=== PATIENT | female | born 1940 | race Caucasian/White ===

== ENCOUNTER → 2017-07-30 | Outpatient (CLI) | payer OTHER ==
[~2017-07-30] MED LIST: 'CLONIDINE0.1 MG PO; ACETAMINOPHEN-H1 TA2 PO; ASPIRIN ADULT L81 M2 PO; ATIVAN1 MG PO; AUGMENTIN 875 M1 TAB PO; AUGMENTIN 875875 MG PO; CALCIUM CARBON500 M1 PO; CARAFATE1 GM PO; CIPRO500 MG PO; CIPROFLOXACIN500 M4 PO; CIPROFLOXACIN500 MG PO; CLARITIN10 MG PO; CLINDAMYCIN300 MG PO; COREG12.5 M1 PO; COREG12.5 MG PO; COREG25 MG PO; COZAAR100 MG PO; CYMBALTA30 MG PO; Carafate1 GM/10 ML PO; Clonidine HCl0.3 MG PO; DARVOCET N 1001 TAB PO; DAYPRO600 M1 PO; DOXYCYCLINE MO100 M1 PO; DUONEB 3 MG/3 ML3 M1 NEB; EC NAPROSYN375 MG PO; EMPIRIN325 MG; EVISTA60 MG PO; FEOSOL300 MG PO; FEOSOL325 MG PO; FERROUS SULFAT324 MG PO; FOSAMAX70 M1 PO; GLUCTESTSTRIP DEVI; HUMALOG100 U/ML SC; HYDR12.5C PO; HYDROCODONE BIT1 T11 PO; HYDROCODONE-APA1 TA1 PO; KEFLEX500 MG PO; KENALOG0.1% TP; LANTUS100 U/ML SC; LASIX20 MG PO; LASIX40 MG PO; LIDODERM 5% PATC1 EA T; LIPITOR10 MG PO; LIPITOR40 MG PO; LISINOPRIL10 MG PO; LODINE400 MG; LODINE400 MG PO; LORAZEPAM0.5 MG PO; LORAZEPAM1 MG PO; Lopressor25 MG PO; MEDROL DOSEPAK4 MG PO; MELOXICAM15 MG PO; MOBIC7.5 MG PO; MULTI VITAMINS1 TAB PO; MULTIVITAMIN CH1 CT1 PO; NAPROSYN250 MG PO; NEXIUM40 MG PO; NORCO 325 MG-51 TAB PO; NORVASC10 MG PO; NOVOLOG10 ML IV; OMEPRAZOLE40 MG PO; ONDANSETRON H2 MG/ML IV; OSCAL,OYSTER S500 MG PO; OYSTER SHELL C500 M3 PO; OYSTER SHELL CA1 TA3 PO; PERCOCET 325 MG1 TA7 PO; PHENERGAN25 M1 PO; PHENERGAN25 M3 PO; PLAVIX75 M1 PO; PLAVIX75 MG PO; PREDNISONE5 MG PO; PRILOSEC20 MG PO; PROTONIX40 MG PO; RALOXIFENE HCL60 MG PO; REQUIP1 MG PO; REQUIP2 M2 PO; ROBAXIN500 MG PO; THERAGRAN1 TA1 PO; TRAMADOL HCL50 MG PO; TUMS 500500 MG PO; TYLENOL EXTRA500 M2 PO; ULTRAM50 MG PO; VICO10300 PO; VICODIN 5/500 505 MG PO; VICODIN 500 MG-1 TAB PO; VITAMIN D1000 IU PO; VITAMIN D50000 I3 PO; XANAX0.5 MG PO; ZANAFLEX4 M1 PO; ZANAFLEX4 MG PO; ZANTAC 150150 MG PO; ZANTAC150 MG PO; ZESTRIL,PRINIVI10 MG PO; ZESTRIL30 M3 PO; ZESTRIL5 MG; ZOFRAN ODT4 MG SL; ZOFRAN4 MG PO; ZOLOFT25 MG PO; ZOLOFT50 MG PO; Zestril,Prinivi40 MG PO; [UNRECOGNIZED DRUG - OTHER]; [UNRECOGNIZED DRUG - OTHER] PO; [UNRECOGNIZED DRUG - OTHER] SC
== END | disposition home or self-care (01) ==
LOC: ORTHO 01:28
DX: M25.551 Pain in right hip (principal); Z96.641 Presence of right artificial hip joint

== ENCOUNTER 2017-12-07 16:08 | Emergency (ER) | payer OTHER ==
[~2017-12-07] VITALS: Ht 170.1 cm; Wt 68.0 kg
[2017-12-07 16:29] LABS: BILIRUBIN 1+ (NEGATIVE); BLOOD TRACE-LYSED (NEGATIVE); CLARITY SL CLOUDY (CLEAR); COLOR YELLOW (YELLOW); GLUCOSE NEGATIVE (NEGATIVE); KETONE TRACE (NEGATIVE); LEUKO ESTERASE NEGATIVE (NEGATIVE); NITRITE POSITIVE (NEGATIVE); SPECIFIC GRAVITY 1.025 (1.005-1.030)
[2017-12-07 16:44] LABS: BACTERIA 1+; RBC 0-2 rbc/hpf (0-2)
[2017-12-07 16:47] LABS: BASO % 0.3 % (0.0-1.0); EOS # 0.3 10*3/uL (0.0-0.4); EOS % 3.1 % (1.0-4.0); HEMATOCRIT 34.4 % (37.0-47.0); HEMOGLOBIN 11.4 g/dl (12.0-16.0); LYMPH # 0.9 10*3/uL (1.3-4.4); LYMPH % 8.3 % (27.0-41.0); MEAN CELL VOLUME 85.8 fl (81.0-99.0); MEAN CORPUSCULAR HGB 28.4 pg (27.0-31.0); MEAN CORPUSCULAR HGB CONC 33.1 g/dl (33.0-37.0); MEAN PLATELET VOLUME 10.4 fl (9.6-12.3); MONO # 1.1 10*3/uL (0.1-1.0); NEUT # 8.7 10*3/uL (2.3-7.9); NEUT % 77.8 % (47.0-73.0); PLATELET COUNT AUTOMATED 266 10*3/uL (130-400); RED BLOOD COUNT 4.01 10*6/uL (4.10-5.10); RED CELL DISTRI WIDTH 13.3 % (0-14.5); WHITE BLOOD COUNT 11.1 10*3/uL (4.8-10.8)
[2017-12-07 16:49] LABS: URINE AMPHETAMINES < 1000 (1000ng/ml); URINE BARBITURATES < 200 (200ng/ml); URINE BENZODIAZEPINES < 200 (200ng/ml); URINE CANNABINOIDS (THC) < 50 (50ng/ml); URINE COCAINE < 300 (300ng/ml); URINE METHADONE < 300 (300ng/ml); URINE OPIATES > 300 (300ng/ml)
[2017-12-07 16:50] LABS: URINE PHENCYCLIDINE < 25 (25ng/ml)
[2017-12-07 17:03] LABS: ALBUMIN 3.4 gm/dl (3.1-4.5); CREATININE 1.51 mg/dL (0.55-1.02); POTASSIUM 3.9 mmol/L (3.5-5.1); TOTAL PROTEIN 7.3 gm/dL (6.4-8.2)
[2017-12-07] MEDS ORDERED: SEPTDS PO (18:14)
[2017-12-07 19:26] VITALS: BP 124/90
== END 2017-12-07 18:45 | disposition home or self-care (01) ==
LOC: ED 16:08
PROVIDERS: Emergency Medicine
DX: R41.82 Altered mental status, unspecified (principal); N39.0 Urinary tract infection, site not specified; I25.10 Atherosclerotic heart disease of native coronary artery without angina pectoris; I13.0 Hypertensive heart and chronic kidney disease with heart failure and stage 1 through stage 4 chronic kidney disease, or unspecified chronic kidney disease; E11.22 Type 2 diabetes mellitus with diabetic chronic kidney disease; N18.3 Chronic kidney disease, stage 3 (moderate); I50.9 Heart failure, unspecified; E78.00 Pure hypercholesterolemia, unspecified; M19.90 Unspecified osteoarthritis, unspecified site; I25.2 Old myocardial infarction; Z86.73 Personal history of transient ischemic attack (TIA), and cerebral infarction without residual deficits; Z90.49 Acquired absence of other specified parts of digestive tract; Z95.1 Presence of aortocoronary bypass graft; Z98.890 Other specified postprocedural states; Z79.4 Long term (current) use of insulin; Z79.899 Other long term (current) drug therapy; Z91.041 Radiographic dye allergy status; Z88.8 Allergy status to other drugs, medicaments and biological substances; Z79.82 Long term (current) use of aspirin

== ENCOUNTER 2017-12-12 14:21 | Emergency (ER) | payer OTHER ==
[~2017-12-12] VITALS: Ht 154.9 cm; Wt 63.5 kg
[~2017-12-12 14:21] MED LIST changes: +SEPTDS PO
[2017-12-12 15:08] LABS: BASO # 0.1 10*3/uL (0.0-0.1); BASO % 0.8 % (0.0-1.0); EOS # 0.3 10*3/uL (0.0-0.4); EOS % 3.3 % (1.0-4.0); HEMATOCRIT 34.9 % (37.0-47.0); HEMOGLOBIN 11.4 g/dl (12.0-16.0); LYMPH # 1.9 10*3/uL (1.3-4.4); LYMPH % 19.6 % (27.0-41.0); MEAN CELL VOLUME 85.1 fl (81.0-99.0); MEAN CORPUSCULAR HGB 27.8 pg (27.0-31.0); MEAN CORPUSCULAR HGB CONC 32.7 g/dl (33.0-37.0); MONO # 0.7 10*3/uL (0.1-1.0); MONO % 7.4 % (3.0-9.0); NEUT # 6.5 10*3/uL (2.3-7.9); NEUT % 66.8 % (47.0-73.0); PLATELET COUNT AUTOMATED 362 10*3/uL (130-400); RED CELL DISTRI WIDTH 13.3 % (0-14.5); WHITE BLOOD COUNT 9.7 10*3/uL (4.8-10.8)
[2017-12-12 15:29] LABS: BILIRUBIN NEGATIVE (NEGATIVE); BLOOD NEGATIVE (NEGATIVE); CLARITY SL CLOUDY (CLEAR); COLOR YELLOW (YELLOW); GLUCOSE 3+ (NEGATIVE); KETONE NEGATIVE (NEGATIVE); LEUKO ESTERASE TRACE (NEGATIVE); NITRITE POSITIVE (NEGATIVE); PH 6.5 (5.0-9.0)
[2017-12-12 15:37] LABS: ALBUMIN 3.3 gm/dl (3.1-4.5); CREATININE 1.55 mg/dL (0.55-1.02); POTASSIUM 4.3 mmol/L (3.5-5.1); TOTAL PROTEIN 7.1 gm/dL (6.4-8.2)
[2017-12-12 15:39] LABS: BACTERIA 2+; EPITHELIAL CELLS 0-2; RBC 0-2 rbc/hpf (0-2); WBC TNTC wbc/hpf (0-5)
[2017-12-12] MEDS ORDERED: AMINOPHYLLIN200 MG PO (16:27)
[2017-12-12] MEDS ORDERED: SEPTDS PO (16:29)
[2017-12-12 17:00] VITALS: BP 123/82
== END 2017-12-12 16:50 ==
LOC: ED 14:21
PROVIDERS: Physician Assistant
DX: N39.0 Urinary tract infection, site not specified (principal); R41.82 Altered mental status, unspecified; Z90.49 Acquired absence of other specified parts of digestive tract; Z88.8 Allergy status to other drugs, medicaments and biological substances

== ENCOUNTER 2017-12-25 23:13 | Inpatient (IN) | payer OTHER ==
[~2017-12-25] VITALS: Ht 149.9 cm; Wt 61.0 kg
[~2017-12-25 23:13] MED LIST changes: +AMINOPHYLLIN200 MG PO
[2017-12-25 23:21] VITALS: BP 121/43
[2017-12-25 23:25] LABS: BILIRUBIN NEGATIVE (NEGATIVE); BLOOD NEGATIVE (NEGATIVE); CLARITY SL CLOUDY (CLEAR); COLOR YELLOW (YELLOW); GLUCOSE NEGATIVE (NEGATIVE); KETONE TRACE (NEGATIVE); LEUKO ESTERASE NEGATIVE (NEGATIVE); NITRITE NEGATIVE (NEGATIVE); PH 5.5 (5.0-9.0); SPECIFIC GRAVITY 1.015 (1.005-1.030); UROBILINOGEN 0.2 E.U./dl (0.2-1.0)
[2017-12-25 23:34] LABS: BACTERIA TRACE; RBC 0-2 rbc/hpf (0-2)
[2017-12-26] LABS: BASO # 0.1 10*3/uL (0.0-0.1); BASO % 0.6 % (0.0-1.0); EOS # 0.3 10*3/uL (0.0-0.4); EOS % 3.6 % (1.0-4.0); HEMATOCRIT 36.4 % (37.0-47.0); HEMOGLOBIN 11.5 g/dl (12.0-16.0); LYMPH # 2.4 10*3/uL (1.3-4.4); LYMPH % 28.6 % (27.0-41.0); MEAN CELL VOLUME 87.7 fl (81.0-99.0); MEAN CORPUSCULAR HGB 27.7 pg (27.0-31.0); MEAN CORPUSCULAR HGB CONC 31.6 g/dl (33.0-37.0); MEAN PLATELET VOLUME 10.2 fl (9.6-12.3); MONO # 0.7 10*3/uL (0.1-1.0); MONO % 8.5 % (3.0-9.0); NEUT # 4.9 10*3/uL (2.3-7.9); NEUT % 58.5 % (47.0-73.0); PLATELET COUNT AUTOMATED 301 10*3/uL (130-400); RED BLOOD COUNT 4.15 10*6/uL (4.10-5.10); RED CELL DISTRI WIDTH 14.1 % (0-14.5); WHITE BLOOD COUNT 8.4 10*3/uL (4.8-10.8)
[2017-12-26 00:21] VITALS: BP 132/56
[2017-12-26 00:22] LABS: ALBUMIN 3.7 gm/dl (3.1-4.5); CREATININE 2.98 mg/dL (0.55-1.02)
[2017-12-26 00:25] LABS: POTASSIUM 6.7 mmol/L (3.5-5.1); TROPONIN I 0.059 ng/ml (<0.045)
[2017-12-26 02:10] VITALS: BP 161/50
[2017-12-26] MEDS ORDERED: CYMBALTA60 MG PO (03:51)
[2017-12-26] MEDS ORDERED: DEPAKOTE ER250 MG PO (03:52)
[2017-12-26] MEDS ORDERED: NOVOLOG100 UNIT/1 SQ (03:54)
[2017-12-26] MEDS ORDERED: TUMS200 MG PO (04:02)
[2017-12-26] MEDS ORDERED: VITAMIN D34000 UNIT PO (04:03)
[2017-12-26] MEDS ORDERED: COREG25 MG PO (04:04)
[2017-12-26] MEDS ORDERED: TYLENOL325 M1 PO (04:06)
[2017-12-26] MEDS ORDERED: BASAGLAR KWIK PEN SC (04:17)
[2017-12-26] MEDS ORDERED: PROTONIX IV40 MG PO (04:20)
[2017-12-26 05:50] LABS: CREATININE 2.47 mg/dL (0.55-1.02)
[2017-12-26 05:56] LABS: THYROID STIM HORMONE (HS) 1.62 uIU/ml (0.358-4.75)
[2017-12-26 06:12] LABS: BASO % 0.5 % (0.0-1.0); EOS # 0.2 10*3/uL (0.0-0.4); EOS % 3.7 % (1.0-4.0); HEMOGLOBIN 10.3 g/dl (12.0-16.0); LYMPH # 1.6 10*3/uL (1.3-4.4); LYMPH % 27.9 % (27.0-41.0); MEAN CELL VOLUME 88.7 fl (81.0-99.0); MEAN CORPUSCULAR HGB 27.7 pg (27.0-31.0); MEAN CORPUSCULAR HGB CONC 31.2 g/dl (33.0-37.0); MEAN PLATELET VOLUME 10.6 fl (9.6-12.3); MONO # 0.6 10*3/uL (0.1-1.0); MONO % 10.4 % (3.0-9.0); NEUT # 3.4 10*3/uL (2.3-7.9); NEUT % 57.2 % (47.0-73.0); PLATELET COUNT AUTOMATED 253 10*3/uL (130-400); RED BLOOD COUNT 3.72 10*6/uL (4.10-5.10); RED CELL DISTRI WIDTH 14.1 % (0-14.5); WHITE BLOOD COUNT 5.9 10*3/uL (4.8-10.8)
[2017-12-26 06:21] LABS: ACT PARTIAL THROMBO TIME 24.3 SECONDS (20.8-31.5)
[2017-12-26 07:18] LABS: VITAMIN D, 25-HYDROXY 76.4 ng/mL (30-100)
[2017-12-26 08:00] VITALS: BP 154/57
[2017-12-26 12:00] VITALS: BP 156/57
[2017-12-26 16:00] VITALS: BP 156/51
[2017-12-26 20:00] VITALS: BP 149/39
[2017-12-27] VITALS: BP 146/58
[2017-12-27 06:00] LABS: CREATININE 1.5 mg/dL (0.55-1.02)
[2017-12-27 06:10] LABS: BASO % 0.5 % (0.0-1.0); EOS # 0.3 10*3/uL (0.0-0.4); EOS % 5.5 % (1.0-4.0); HEMATOCRIT 32.1 % (37.0-47.0); LYMPH % 34.4 % (27.0-41.0); MEAN CELL VOLUME 89.4 fl (81.0-99.0); MEAN CORPUSCULAR HGB 27.9 pg (27.0-31.0); MEAN CORPUSCULAR HGB CONC 31.2 g/dl (33.0-37.0); MEAN PLATELET VOLUME 10.6 fl (9.6-12.3); MONO # 0.7 10*3/uL (0.1-1.0); MONO % 12.1 % (3.0-9.0); NEUT # 2.7 10*3/uL (2.3-7.9); NEUT % 47.2 % (47.0-73.0); PLATELET COUNT AUTOMATED 212 10*3/uL (130-400); RED BLOOD COUNT 3.59 10*6/uL (4.10-5.10); RED CELL DISTRI WIDTH 13.9 % (0-14.5); WHITE BLOOD COUNT 5.8 10*3/uL (4.8-10.8)
[2017-12-27 06:11] LABS: POTASSIUM 4.8 mmol/L (3.5-5.1)
[2017-12-27 08:00] VITALS: BP 130/40
[2017-12-27 12:00] VITALS: BP 139/57
[2017-12-27 16:00] VITALS: BP 143/59
[2017-12-27 20:00] VITALS: BP 157/71
[2017-12-28 00:10] VITALS: BP 157/82
[2017-12-28 07:30] LABS: CREATININE 1.29 mg/dL (0.55-1.02); PHOSPHOROUS 2.1 mg/dL (2.5-4.9); POTASSIUM 4.3 mmol/L (3.5-5.1)
[2017-12-28 08:42] VITALS: BP 156/82
[2017-12-28] MEDS ORDERED: HYDROCODONE-AC1 EAC1 PO (12:09)
== END 2017-12-28 16:05 | disposition other institution (70) | DRG 682 ==
LOC: ED 23:13 → 5E 12-26 01:16 → EDHOLD 12-26 01:16 → 5E 12-26 01:28
PROVIDERS: Internal Medicine; Nurse Practitioner Family
DX: N17.0 Acute kidney failure with tubular necrosis (principal); G93.41 Metabolic encephalopathy; E11.22 Type 2 diabetes mellitus with diabetic chronic kidney disease; E11.65 Type 2 diabetes mellitus with hyperglycemia; I50.32 Chronic diastolic (congestive) heart failure; I13.0 Hypertensive heart and chronic kidney disease with heart failure and stage 1 through stage 4 chronic kidney disease, or unspecified chronic kidney disease; E87.1 Hypo-osmolality and hyponatremia; F33.9 Major depressive disorder, recurrent, unspecified; I25.810 Atherosclerosis of coronary artery bypass graft(s) without angina pectoris; Z83.3 Family history of diabetes mellitus; Z66 Do not resuscitate; E87.5 Hyperkalemia; D50.9 Iron deficiency anemia, unspecified; Z51.5 Encounter for palliative care; K57.30 Diverticulosis of large intestine without perforation or abscess without bleeding; N18.3 Chronic kidney disease, stage 3 (moderate); G89.29 Other chronic pain; M19.90 Unspecified osteoarthritis, unspecified site; E78.00 Pure hypercholesterolemia, unspecified; K44.9 Diaphragmatic hernia without obstruction or gangrene; M54.41 Lumbago with sciatica, right side; E53.8 Deficiency of other specified B group vitamins; Z88.8 Allergy status to other drugs, medicaments and biological substances; Z91.041 Radiographic dye allergy status; Z79.899 Other long term (current) drug therapy; Z79.82 Long term (current) use of aspirin; Z79.4 Long term (current) use of insulin; Z98.42 Cataract extraction status, left eye; Z98.41 Cataract extraction status, right eye; I25.2 Old myocardial infarction; Z86.73 Personal history of transient ischemic attack (TIA), and cerebral infarction without residual deficits; Z90.49 Acquired absence of other specified parts of digestive tract; Z95.1 Presence of aortocoronary bypass graft; Z80.9 Family history of malignant neoplasm, unspecified; Z82.49 Family history of ischemic heart disease and other diseases of the circulatory system

== ENCOUNTER 2018-01-04 17:27 | Inpatient (IN) | payer OTHER ==
[~2018-01-04] VITALS: Ht 149.9 cm; Wt 57.0 kg
[~2018-01-04 17:27] MED LIST changes: +BASAGLAR KWIK PEN SC; +CYMBALTA60 MG PO; +DEPAKOTE ER250 MG PO; +HYDROCODONE-AC1 EAC1 PO; +NOVOLOG10 ML SQ; +NOVOLOG100 UNIT/1 SQ; +PROTONIX IV40 MG PO; +TUMS200 MG PO; +TYLENOL325 M1 PO; +VITAMIN D34000 UNIT PO
[2018-01-04 17:30] VITALS: BP 124/78
[2018-01-04 17:46] LABS: BILIRUBIN NEGATIVE (NEGATIVE); BLOOD TRACE-INTACT (NEGATIVE); CLARITY CLEAR (CLEAR); COLOR YELLOW (YELLOW); GLUCOSE NEGATIVE (NEGATIVE); KETONE NEGATIVE (NEGATIVE); LEUKO ESTERASE NEGATIVE (NEGATIVE); NITRITE NEGATIVE (NEGATIVE); UROBILINOGEN 0.2 E.U./dl (0.2-1.0)
[2018-01-04] MEDS ORDERED: LANTUS SOL100 UNIT/1 SQ (17:50)
[2018-01-04] MEDS ORDERED: MACROBID100 M1 PO (17:52)
[2018-01-04] MEDS ORDERED: BIOFREEZE118 ML T (17:52)
[2018-01-04] MEDS ORDERED: LOSARTAN POTAS100 M1 PO (17:52)
[2018-01-04] MEDS ORDERED: TYLENOL325 M2 PO (17:54)
[2018-01-04] MEDS ORDERED: NOVOLOG100 UNIT/1 SQ (17:55)
[2018-01-04 17:59] LABS: BACTERIA TRACE
[2018-01-04 18:23] LABS: BASO % 0.3 % (0.0-1.0); EOS # 0.1 10*3/uL (0.0-0.4); EOS % 0.8 % (1.0-4.0); HEMATOCRIT 37.4 % (37.0-47.0); HEMOGLOBIN 12.1 g/dl (12.0-16.0); LYMPH # 0.6 10*3/uL (1.3-4.4); LYMPH % 3.6 % (27.0-41.0); MEAN CELL VOLUME 84.8 fl (81.0-99.0); MEAN CORPUSCULAR HGB 27.4 pg (27.0-31.0); MEAN CORPUSCULAR HGB CONC 32.4 g/dl (33.0-37.0); MEAN PLATELET VOLUME 10.5 fl (9.6-12.3); MONO # 1.2 10*3/uL (0.1-1.0); MONO % 7.6 % (3.0-9.0); NEUT # 13.8 10*3/uL (2.3-7.9); NEUT % 86.5 % (47.0-73.0); PLATELET COUNT AUTOMATED 232 10*3/uL (130-400); RED BLOOD COUNT 4.41 10*6/uL (4.10-5.10)
[2018-01-04 18:27] VITALS: BP 140/75
[2018-01-04 18:41] LABS: ALBUMIN 3.7 gm/dl (3.1-4.5); CREATININE 1.26 mg/dL (0.55-1.02); POTASSIUM 4.2 mmol/L (3.5-5.1); TOTAL PROTEIN 7.6 gm/dL (6.4-8.2)
[2018-01-04 18:45] LABS: TROPONIN I 0.11 ng/ml (<0.045)
[2018-01-04 19:40] VITALS: BP 143/85
[2018-01-04 21:15] VITALS: BP 143/85
[2018-01-05] VITALS: BP 137/53
== END 2018-01-05 04:27 | disposition short-term general hospital (02) | DRG 637 ==
LOC: ED 17:27 → EDHOLD 20:32 → 4E 20:55
PROVIDERS: Emergency Medicine; Nurse Practitioner Family
DX: E11.65 Type 2 diabetes mellitus with hyperglycemia (principal); G93.41 Metabolic encephalopathy; E87.2 Acidosis; I13.0 Hypertensive heart and chronic kidney disease with heart failure and stage 1 through stage 4 chronic kidney disease, or unspecified chronic kidney disease; R65.10 Systemic inflammatory response syndrome (SIRS) of non-infectious origin without acute organ dysfunction; E11.22 Type 2 diabetes mellitus with diabetic chronic kidney disease; I50.32 Chronic diastolic (congestive) heart failure; F33.9 Major depressive disorder, recurrent, unspecified; I25.810 Atherosclerosis of coronary artery bypass graft(s) without angina pectoris; N18.3 Chronic kidney disease, stage 3 (moderate); H26.9 Unspecified cataract; K31.89 Other diseases of stomach and duodenum; K44.9 Diaphragmatic hernia without obstruction or gangrene; M54.41 Lumbago with sciatica, right side; G89.29 Other chronic pain; E78.00 Pure hypercholesterolemia, unspecified; E53.8 Deficiency of other specified B group vitamins; E55.9 Vitamin D deficiency, unspecified; K43.9 Ventral hernia without obstruction or gangrene; Z66 Do not resuscitate; Z51.5 Encounter for palliative care; M19.90 Unspecified osteoarthritis, unspecified site; R80.9 Proteinuria, unspecified; M81.0 Age-related osteoporosis without current pathological fracture; G25.81 Restless legs syndrome; K57.30 Diverticulosis of large intestine without perforation or abscess without bleeding; Z86.73 Personal history of transient ischemic attack (TIA), and cerebral infarction without residual deficits; Z90.89 Acquired absence of other organs; Z90.49 Acquired absence of other specified parts of digestive tract; Z95.1 Presence of aortocoronary bypass graft; Z83.3 Family history of diabetes mellitus; Z82.49 Family history of ischemic heart disease and other diseases of the circulatory system; Z80.9 Family history of malignant neoplasm, unspecified; Z88.8 Allergy status to other drugs, medicaments and biological substances; I25.2 Old myocardial infarction; Z91.041 Radiographic dye allergy status; Z79.82 Long term (current) use of aspirin; Z79.899 Other long term (current) drug therapy; Z79.4 Long term (current) use of insulin; Z87.440 Personal history of urinary (tract) infections

== ENCOUNTER 2018-01-08 19:14 | Emergency (ER) | payer OTHER ==
[~2018-01-08] VITALS: Wt 68.0 kg
[~2018-01-08 19:14] MED LIST changes: +BIOFREEZE118 ML T; +LANTUS SOL100 UNIT/1 SQ; +LOSARTAN POTAS100 M1 PO; +MACROBID100 M1 PO; +TYLENOL325 M2 PO
[2018-01-08 19:37] LABS: BILIRUBIN NEGATIVE (NEGATIVE); BLOOD NEGATIVE (NEGATIVE); CLARITY CLEAR (CLEAR); COLOR YELLOW (YELLOW); GLUCOSE 2+ (NEGATIVE); KETONE TRACE (NEGATIVE); LEUKO ESTERASE NEGATIVE (NEGATIVE); NITRITE NEGATIVE (NEGATIVE); UROBILINOGEN 0.2 E.U./dl (0.2-1.0)
[2018-01-08 19:45] LABS: BACTERIA 2+; EPITHELIAL CELLS 0-2; RBC 0-2 rbc/hpf (0-2)
[2018-01-08 19:46] LABS: URINE AMPHETAMINES < 1000 (1000ng/ml); URINE BARBITURATES < 200 (200ng/ml); URINE BENZODIAZEPINES < 200 (200ng/ml); URINE CANNABINOIDS (THC) < 50 (50ng/ml); URINE COCAINE < 300 (300ng/ml); URINE METHADONE < 300 (300ng/ml); URINE OPIATES > 300 (300ng/ml)
[2018-01-08 19:47] LABS: URINE PHENCYCLIDINE < 25 (25ng/ml)
[2018-01-08] MEDS ORDERED: BIOFREEZE118 ML T (20:02)
[2018-01-08 20:03] LABS: HEMATOCRIT 37.3 % (37.0-47.0); HEMOGLOBIN 11.8 g/dl (12.0-16.0); MEAN CELL VOLUME 85.9 fl (81.0-99.0); MEAN CORPUSCULAR HGB 27.2 pg (27.0-31.0); MEAN CORPUSCULAR HGB CONC 31.6 g/dl (33.0-37.0); MEAN PLATELET VOLUME 9.8 fl (9.6-12.3); NUCLEATED RED BLOOD CELL 0.1 % (0.0-0.0); PLATELET COUNT AUTOMATED 309 10*3/uL (130-400); RED BLOOD COUNT 4.34 10*6/uL (4.10-5.10); WHITE BLOOD COUNT 14.9 10*3/uL (4.8-10.8)
[2018-01-08] MEDS ORDERED: COZAAR100 MG PO (20:04)
[2018-01-08] MEDS ORDERED: MACROBID100 M1 PO (20:04)
[2018-01-08] MEDS ORDERED: NORCO 5-325 TA1 EACH PO (20:05)
[2018-01-08] MEDS ORDERED: NOVOLOG10 ML SQ (20:07)
[2018-01-08] MEDS ORDERED: TUMS200 MG PO (20:08)
[2018-01-08 20:20] LABS: CREATININE 1.28 mg/dL (0.55-1.02); POTASSIUM 3.4 mmol/L (3.5-5.1); TOTAL PROTEIN 7.4 gm/dL (6.4-8.2)
[2018-01-08 20:29] LABS: TROPONIN I 0.114 ng/ml (<0.045)
[2018-01-08 20:41] VITALS: BP 169/78
[2018-01-08 20:42] LABS: TOTAL CELLS COUNTED 100 #CELLS
[2018-01-08 20:43] LABS: PLATELET SUFFICIENCY NORMAL (NORMAL)
== END 2018-01-08 21:42 ==
LOC: ED 19:14
PROVIDERS: Emergency Medicine Emergency Medical Services
DX: N39.0 Urinary tract infection, site not specified (principal); I13.0 Hypertensive heart and chronic kidney disease with heart failure and stage 1 through stage 4 chronic kidney disease, or unspecified chronic kidney disease; E11.22 Type 2 diabetes mellitus with diabetic chronic kidney disease; N18.3 Chronic kidney disease, stage 3 (moderate); I50.9 Heart failure, unspecified; E78.00 Pure hypercholesterolemia, unspecified; M19.90 Unspecified osteoarthritis, unspecified site; G89.29 Other chronic pain; I25.10 Atherosclerotic heart disease of native coronary artery without angina pectoris; Z86.73 Personal history of transient ischemic attack (TIA), and cerebral infarction without residual deficits; Z90.49 Acquired absence of other specified parts of digestive tract; Z95.1 Presence of aortocoronary bypass graft; Z98.890 Other specified postprocedural states; Z79.4 Long term (current) use of insulin; Z79.899 Other long term (current) drug therapy; Z91.041 Radiographic dye allergy status; Z88.8 Allergy status to other drugs, medicaments and biological substances; Z79.82 Long term (current) use of aspirin

== ENCOUNTER 2018-02-09 13:43 | Inpatient (IN) | payer OTHER ==
[~2018-02-09] VITALS: Ht 149.8 cm; Wt 59.9 kg
--- NOTE | ~2018-02-09 | PR ---
[place], [place] PROGRESS NOTE NAME: [facility]ANG [facility] [id number] UNIT #: [id number] ROOM: 316 DOCTOR: MATT FERRO DO BIRTHDATE: [birth year] DOS: 02/18/2018 CHIEF COMPLAINT: "I had blurry vision." SUMMARY OF VISIT: The patient was interviewed in her room. She ____ lot better ____. Per staff, she got 1 [place] last night at about 6:00 p.m. She does complain of blurriness in her vision, difficulty participating in group ____. MENTAL STATUS EXAMINATION: She is alert and oriented with some times gaps. Mood tends to be trending towards euthymia with appropriate affect. She has not displayed any signs or symptoms of courtney, hypomania, delusions or psychosis. Short term memory is relatively intact. PLAN: We will continue her current psychotropic regimen at this time, monitoring her pain and continue to engage her in individual and group activities with the plan to return her to the least restrictive environment when psychiatrically stable. MATT FERRO DO GLADYS BATEMAN MD CM:PNTRANS [id number] MATT FERRO DO 02/19/18 0324 interface
--- NOTE | ~2018-02-09 | PR ---
[place], [place] PROGRESS NOTE [id number] UN[facility] #: [id number] ROOM: 316 DOCTOR: MATT FERRO DO BIRTHDATE: [birth year] DOS: 02/17/2018 CHIEF COMPLAINT: "Pain is 10/10." SUMMARY OF VISIT: The patient was interviewed in her room. She states that she did not sleep very well due to increased pain, pain at 10/10. Per report, she has poor p.o. intake. She is not caring for self, reported an incident where she needed to go to the bathroom and needed assistance walking to the bathroom. The assistance ____. She states that the medication is not working as well as it did the day before. MENTAL STATUS EXAMINATION: She is alert and oriented, some time gaps. Mood is trending towards euthymia. Appropriate affect. She does not play display any symptoms or signs of courtney, hypomania or psychosis. Short term memory is relatively intact. PLAN: We will increase her Elavil to 50 mg t.i.d. to monitor for potential benefit for pain. Continue to engage her in group and individual activities with the plan to return her to the least restrictive environment when psychiatrically stable. MATT FERRO DO GLADYS BATEMAN MD CM:PNTRANS [id number] MATT FERRO DO 02/19/18 0322 interface
--- NOTE | ~2018-02-09 | DS ---
[place], [place] DISCHARGE SUMMARY NAME: CHANCE KANG [facility] #: [id number] UNIT #: [id number] ROOM: 316 DOCTOR: GLADYS BATEMAN MD BIRTHDATE: [birth year] DOS: 02/21/2018 CHIEF COMPLAINT: "I've just been so depressed and in so much pain." HISTORY OF PRESENT ILLNESS: This is a 77-year-old white female who resides at [facility] in [place], [place]. The patient has been increasingly more depressed and despondent. She has been yelling out for pain meds, stating that she is in horrible excruciating pain and she would just assume be than continue with this type of pain. The patient does have a rectal prolapse, which is one of the major causes of her pain, but she also states that she has pain in her legs and her thighs as well. 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 She is admitted to rule out organic factors and to attempt to stabilize on medication. PAST MEDICAL HISTORY: Remarkable for vitamin B12 deficiency, bilateral cataracts, coronary artery disease, congestive heart failure, chronic back pain, chronic kidney disease stage 3, diabetes, gastric volvulus, hiatal hernia, hyperlipidemia, hypertension, iron deficiency anemia, myocardial infarction, osteoarthritis, osteoporosis, rectal prolapse and a lengthy history of major depression. ALLERGIES: The patient does have allergies to GABAPENTIN, RED DYE and IVP DYE. SUMMARY OF HOSPITAL COURSE: The patient was admitted to the unit where she was initially started on Cymbalta 30 mg twice daily. This was rapidly increased to its maximum dose of 120 mg daily and Vistaril 50 mg 3 times daily was used as an antianxiety medication to try to augment the effectiveness of the Cymbalta in relieving her pain. Neither of these medications were exceptionally beneficial and the patient continued to experience significant pain and depression. Eventually, they were discontinued in lieu of Elavil 25 mg 3 times daily. When this was first started, she had a 24-hour period of significant pain relief; however, the pain did come back to the point where she was feeling uncomfortable throughout the day. The dose of the Elavil was doubled to 50 mg 3 times daily with excellent relief, which sustained over the several-day period of time, whereby we felt that it was safe for her to be able to be discharged back to her long-term care facility. MENTAL STATUS AT DISCHARGE: The patient is alert and oriented to person, place and very approximate to time. Mood does seem to be trending towards euthymia. Affect is much more appropriate. There is no courtney, hypomania or psychosis. Short-term memory has mild gaps, otherwise she is intact. FINAL DIAGNOSES AT DISCHARGE: Major depression, recurrent, severe. PLAN: All of her prescriptions were printed and will be sent with her to the [facility]. She will have followup by myself. She is medically and psychiatrically stable. Her biopsychosocial needs are adequately being met by the facility itself as well as her medical and psychiatric providers. [place], [place] DISCHARGE SUMMARY NAME: CHANCE KANG UNIT #: [id number] ROOM: [facility] DOCTOR: GLADYS BATEMAN MD BIRTHDATE: [birth year] GLADYS BATEMAN MD CM:DISCHPHAM 2 4 GLADYS BATEMAN MD 02/21/1834 interface
--- NOTE | ~2018-02-09 | PR ---
[place], [place] PROGRESS NOTE NAME: [id number] UNIT #: [id number] ROOM: 317 DOCTOR: MATT FERRO DO BIRTHDATE: [birth year] DOS: 02/11/2018 CHIEF COMPLAINT: "I feel much better." SUMMARY OF VISIT: The patient was interviewed in the hallway. She is working with physical therapy. She stated that she is feeling much better. She complains of pain that is bilaterally in her thighs, does not mention her prolapsed rectum. According to nursing staff, she did have [place] for pain given twice, one before bed and then once in the forestry faculty member hours. Staff did note she did seem to be a little bit more tired with the dose of the Vistaril. MENTAL STATUS EXAMINATION: She is alert and oriented. She does have depression. Her affect is flat, blunted, and constricted. She has no symptoms of courtney or hypomania. There are no overt auditory or visual hallucinations. No signs of delusions or paranoia. Her short term, intermediate, and long-term memory are intact. PLAN: Her Cymbalta will be increased to 60 mg b.i.d. in order to assist with her pain. We will consider lowering the Vistaril. We will monitor the patient for sedation and other side effects. Pain management is deferred to the hospitalist at this time; however, at today's visit, her pain seems to be improved. We will continue to engage her individual and group activities, returning her back to the least restrictive environment when psychiatrically stable. MATT FERRO DO GLADYS BATEMAN MD CM:PNBRET [id number] MATT FERRO DO 02/11/18 1037 interface
--- NOTE | ~2018-02-09 | PR ---
[place], [place] PROGRESS NOTE NAME: CHANCE KANG [facility] #: [id number] UNIT #: [id number] ROOM: 316 DOCTOR: ROBBY MANNING MD BIRTHDATE: [birth year] DOS: 02/12/2018 SUBJECTIVE: The patient seen and spoke with staff. Per staff, patient is doing well. No behavior problems or issues. Compliant with her medications. She slept well last night. The patient was pleasant and cooperative. She said that she is doing fine, did not express any problems or concerns. Denied depressed mood or hopelessness. Reported good sleep and appetite. MENTAL STATUS EXAMINATION: Pleasant and cooperative. Described her mood as "fine." Affect, mood congruent. Thought process goal directed. No flight of ideas, loosening of association. She denied auditory or visual hallucination. No delusion or paranoia noted. She denied suicidal ideation, intent or plan. She also denied homicidal ideation, intent or plan. PLAN: 1. Continue current medication and care. 2. Continue redirection. 3. Supportive care. 4. Encourage activity and groups. ROBBY MANNING MD CM:PNTRANS [phone] ROBBY MANNING MD 02/13/18 0519 interface
--- NOTE | ~2018-02-09 | PR ---
[place], [place] PROGRESS NOTE [id number] UNIT #: [id number] ROOM: 316 DOCTOR: GLADYS BATEMAN MD BIRTHDATE: [birth year] DOS: 02/14/2018 CHIEF COMPLAINT: "My legs hurt." SUMMARY OF THE VISIT: The patient was interviewed as she was sitting in her room. She was sitting on the edge of her bed. She continued to complain of pain, although she was not very vehement about it. This time the source of the pain was her lower leg, mainly in the calf area. Otherwise, she reports she is feeling good. She actually smiled as I approached her in her room. She reports good sleep and overall, the vast majority of the significant pain that was so prominent upon admission has been dissipating somewhat. MENTAL STATUS: She is alert and oriented with time gaps. Mood does seem to be strongly trending towards euthymia. Affect is much more appropriate. There is no courtney, hypomania or psychosis. Short, intermediate, and long-term memory for the most part are relatively intact. PLAN: I will go ahead and order her Zostrix high potency cream t.i.d. to see if we can address the pain in another fashion. She is already on the maximum dose of Cymbalta, which is 60 mg twice daily. She is allergic to NEURONTIN. I do not want to utilize any other means at this point for pain control. I defer any other means for pain control to the hospitalist. We will continue to attempt to engage her in individual and brooke milieu activity, returning to the least restrictive environment when stable. GLADYS BATEMAN MD CM:PNTRANS 1017 1134 GLADYS BATEMAN MD 02/14/18 1133 interface
--- NOTE | ~2018-02-09 | PR ---
[place], [place] PROGRESS NOTE [id number] UN[facility] #: [id number] ROOM: 316 DOCTOR: MATT FERRO DO BIRTHDATE: [birth year] DOS: 02/16/2018 CHIEF COMPLAINT: "My pain is slightly better." SUMMARY OF VISIT: The patient was interviewed in her room. She states that her pain in her calves and legs is somewhat improved. Staff reports that her pain is better since starting the Elavil medication. MENTAL STATUS EXAMINATION: She is alert and oriented with some time gaps. Mood is trending towards euthymia with appropriate affect. She does not display any symptoms or signs of courtney, hypomania, psychosis. Her short term memory is relatively intact. PLAN: We will start spray and continue her current psychotropic regimen at this time. We will continue to monitor her pain and continue to engage her in group and individual activities with the plan to return her to the least restrictive environment once psychiatrically stable. MATT FERRO DO GLADYS BATEMAN MD CM:SHELBI 1135 1327 MATT FERRO DO 02/16/18 1326 interface
--- NOTE | ~2018-02-09 | WRIGHTHP ---
[place], [place] PATIENT HISTORY AND PHYSICAL EXAM NAME: CHANCE KANG [facility] #: [id number] UNIT #: [id number] ROOM: 317 DOCTOR: GLADYS BATEMAN MD BIRTHDATE: [birth year] DOS: 02/10/2018 CHIEF COMPLAINT: "I've just been depressed and in so much pain." HISTORY OF PRESENT ILLNESS: This is a 77-year-old white female who resides at [facility] in [place], [place]. The patient has been increasingly more depressed and despondent. She has been yelling out for pain meds stating that she is in horrible excruciating pain and that she would just be than to continue in this kind of pain. The patient does have of note a rectal prolapse, which is one of the major causes of her pain and it is very difficult for her to get comfortable. She cannot sit or lay down for very long periods of time. 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 She is admitted now to rule out organic factors, to stabilize on medication, returning to the least restrictive environment when psychiatrically stable. PAST MEDICAL HISTORY: Remarkable for vitamin B12 deficiency, bilateral cataracts, coronary artery disease, congestive heart failure, chronic back pain, chronic pain in general, chronic kidney disease stage 3, diabetes, gastric volvulus, hiatal hernia, hyperlipidemia, hypertension, iron deficiency anemia, myocardial infarction, osteoarthritis, osteoporosis, and the rectal prolapse as well as a history of major depression, recurrent. ALLERGIES: The patient does have allergies to GABAPENTIN, RED DYE and IVP DYE. MENTAL STATUS: She is alert and oriented. She is overwhelmingly depressed. Affect is flat, blunted, and constricted. She endorses multiple neurovegetative symptoms. There is no courtney or hypomania. There are no overt auditory or visual hallucinations. No delusions, no paranoia. Short term, intermediate, and long-term memory are intact. DIAGNOSIS: Major depression, recurrent, severe. PLAN: I have already started her on Cymbalta 30 mg twice a day. She has tolerated this well, so I will increase to 30 mg in the morning and 60 mg at night with the plan to bring this to 120 ultimately. I will discontinue Depakote as I do not see her having true mood lability of courteny, but rather significant pain and depression. I will start Vistaril 50 mg 3 times daily to see if the antianxiety medication will relax her enough so that she is not in as much pain. I defer other pain management to the hospitalist and their expertise. Engage in individual and brooke milieu activity, returning back to her long-term care facility when stable. [place], [place] PATIENT HISTORY AND PHYSICAL EXAM NAME: CHANCE KANG UNIT #: [id number] ROOM: 317 DOCTOR: GLADYS BATEMAN MD BIRTHDATE: [birth year] GLADYS BATEMAN MD CM:HISPHYS:PATIENT HISTORY AND PHYSICAL EXAMINATION 5 GLADYS BATEMAN MD 02/10/18 0935 interface
--- NOTE | ~2018-02-09 | PR ---
[place], [place] PROGRESS NOTE NAME: CHANCE KANG [facility] #: [id number] UNIT #: [id number] ROOM: 316 DOCTOR: ROBBY MANNING MD BIRTHDATE: [birth year] DOS: 02/13/2018 SUBJECTIVE: The patient was seen and spoke with the staff. Per staff the patient was yelling and screaming last night. Also, she was placed on contact precaution by the medical team. She is compliant with her medication. The patient was pleasant and cooperative. She was in the room, sitting by the bed. She said that her legs are hurting, did not express any other problems or concerns. She denied any side effect from the medication. MENTAL STATUS EXAMINATION: The patient was pleasant and cooperative. Described her mood as "okay." Affect, mood congruent. She denied auditory or visual hallucination. No delusion or paranoia noted. She denied suicidal ideation, intent or plan. She also denied homicidal ideation, intent or plan. PLAN: 1. Continue current medication and care. 2. Encourage activity and groups. 3. Final medication management and discharge plan by the regular team. ROBBY MANNING MD CM:PNTRANS [phone] ROBBY MANNING MD 02/13/182245 interface
--- NOTE | ~2018-02-09 | PR ---
[place], [place] PROGRESS NOTE [id number] UNIT #: [id number] ROOM: 316 DOCTOR: GLADYS BATEMAN MD BIRTHDATE: [birth year] DOS: 02/19/2018 CHIEF COMPLAINT: "The pain is better, I feel better." SUMMARY OF THE VISIT: The patient was interviewed as she sat in the wheelchair waiting to go to CAT scan. The patient apparently stood up and fell down earlier in the day and the hospitalist wanted to recheck a CAT scan to make certain that she is okay. On a positive note, she says she feels better and the pain is less. She denies feeling sedate, lightheaded or dizzy. MENTAL STATUS: She is alert and oriented with some time gaps. Mood does seem to be fairly euthymic. Affect appropriate. There is no courtney, hypomania or psychosis. Short term memory has gaps. PLAN: I will attempt to obtain an amitriptyline level in the morning. I will also check orthostatic blood pressure and pulse every shift to make certain she is not orthostatic from the amitriptyline. We will engage in individual and brooke milieu activities, returning to the least restrictive environment when stable. GLADYS BATEMAN MD CM:PNTRANS 1104 1137 GLADYS BATEMAN MD 02/19/18 1136 interface
--- NOTE | ~2018-02-09 | PR ---
[place], [place] PROGRESS NOTE NAME: CHANCE KANG UNIT #: [id number] ROOM: 316 DOCTOR: MATT FERRO DO BIRTHDATE: [birth year] DOS: 02/15/2018 CHIEF COMPLAINT: "My catheter." SUMMARY OF VISIT: The patient was interviewed in her room. She states that she continues to complain of her pain in her calves where as previously it was in her upper thighs. Staff reports that this is her second day on the IV antibiotics with the meropenem. MENTAL STATUS EXAMINATION: She is alert and oriented with some time gaps. Mood seems to be strongly trending towards euthymia. Affect is more appropriate, not display any symptoms of courtney, hypomania or psychosis and short term memory is relatively intact for the most part. PLAN: We will discontinue the Cymbalta and start Elavil 25 mg t.i.d. to attempt to address her neuropathic pain. She is allergic to NEURONTIN. We will monitor her pain and defer any other means for pain control to the hospitalist group continue to engage her in group and individual activities, returning to the least restrictive environment when psychiatrically stable. MATT FERRO DO GLADYS BATEMAN MD CM:PNBRET 1020 1044 MATT FERRO DO 02/15/18 1043 interface
--- NOTE | ~2018-02-09 | PR ---
[place], [place] PROGRESS NOTE NAME: [facility] [id number] UNIT #: [id number] ROOM: 316 DOCTOR: GLADYS BATEMAN MD BIRTHDATE: [birth year] DOS: 02/20/2018 CHIEF COMPLAINT: "I think I feel a little better, thank you." SUMMARY OF THE VISIT: The patient was interviewed once again in her room. She was sitting in her wheelchair. She did report that she is feeling somewhat better and is feeling like the medicine has helped somewhat with the pain. She is sleeping better. She appears less depressed and has not been yelling out as previously. MENTAL STATUS: She is alert and oriented. Mood does seem to be trending towards euthymia. Affect is much more appropriate. There is no courtney or hypomania. There are no psychotic symptoms. Short-term memory has mild gaps, otherwise she is intact. PLAN: I will maintain her current medication regimen, continue to support and monitor, engage in individual and brooke milieu activities, returning to the least restrictive environment when stable. GLADYS BATEMAN MD CM:PNTRANS 1035 1040 GLADYS BATEMAN MD 02/20/18 1039 interface
[~2018-02-09 13:43] MED LIST changes: +NORCO 5-325 TA1 EACH PO; +OYSTER SHELL C1 EAC4 PO; -OYSTER SHELL C500 M3 PO
[2018-02-09] MEDS ORDERED: BASAG SOL SQ (14:48)
[2018-02-09] MEDS ORDERED: MIRALAX119 GM PO (14:51)
[2018-02-09] MEDS ORDERED: DEPAKOTE SPRIN125 MG PO (14:52)
[2018-02-09] MEDS ORDERED: LACTULOSE10 GM/151 PO (15:10)
[2018-02-09 15:29] VITALS: BP 150/77
[2018-02-09 16:08] VITALS: BP 150/77
[2018-02-09 16:28] LABS: BASO # 0.1 10*3/uL (0.0-0.1); BASO % 0.7 % (0.0-1.0); EOS # 0.3 10*3/uL (0.0-0.4); EOS % 3.4 % (1.0-4.0); HEMATOCRIT 30.5 % (37.0-47.0); HEMOGLOBIN 9.4 g/dl (12.0-16.0); LYMPH # 2.6 10*3/uL (1.3-4.4); LYMPH % 27.7 % (27.0-41.0); MEAN CELL VOLUME 88.7 fl (81.0-99.0); MEAN CORPUSCULAR HGB 27.3 pg (27.0-31.0); MEAN CORPUSCULAR HGB CONC 30.8 g/dl (33.0-37.0); NEUT # 5.3 10*3/uL (2.3-7.9); NEUT % 56.7 % (47.0-73.0); PLATELET COUNT AUTOMATED 340 10*3/uL (130-400); RED BLOOD COUNT 3.44 10*6/uL (4.10-5.10); RED CELL DISTRI WIDTH 16.2 % (0-14.5); WHITE BLOOD COUNT 9.4 10*3/uL (4.8-10.8)
[2018-02-09 16:49] LABS: ALBUMIN 3.7 gm/dl (3.1-4.5); CREATININE 1.66 mg/dL (0.55-1.02); POTASSIUM 4.8 mmol/L (3.5-5.1); TOTAL PROTEIN 7.1 gm/dL (6.4-8.2)
[2018-02-09 16:54] LABS: VITAMIN D, 25-HYDROXY 66.4 ng/mL (30-100)
[2018-02-09 16:59] LABS: THYROID STIM HORMONE (HS) 7.95 uIU/ml (0.358-4.75)
[2018-02-09 20:15] VITALS: BP 154/90
[2018-02-10 08:49] VITALS: BP 132/80
[2018-02-10 18:19] LABS: BILIRUBIN NEGATIVE (NEGATIVE); BLOOD NEGATIVE (NEGATIVE); CLARITY SL CLOUDY (CLEAR); COLOR YELLOW (YELLOW); GLUCOSE NEGATIVE (NEGATIVE); KETONE NEGATIVE (NEGATIVE); LEUKO ESTERASE TRACE (NEGATIVE); NITRITE NEGATIVE (NEGATIVE); PH 5.5 (5.0-9.0); SPECIFIC GRAVITY 1.025 (1.005-1.030); UROBILINOGEN 0.2 E.U./dl (0.2-1.0)
[2018-02-10 18:25] LABS: BACTERIA 3+; WBC 21-30 wbc/hpf (0-5)
[2018-02-10 21:21] VITALS: BP 128/75
[2018-02-11 06:01] LABS: CHOLESTEROL 98 mg/dL (<200); HDL CHOLESTEROL 49 mg/dl (40-60); LDL CHOLESTEROL 28 mg/dL (9-159); TRIGLYCERIDES 106 mg/dl (<150); VLDL CHOLESTEROL 21 mg/dL (6-40)
[2018-02-11 08:06] VITALS: BP 109/61; BP 122/77
[2018-02-11 21:21] VITALS: BP 118/39
[2018-02-12 08:03] VITALS: BP 146/41
[2018-02-12 19:53] VITALS: BP 151/51
[2018-02-13 08:00] VITALS: BP 154/69
[2018-02-13 20:45] VITALS: BP 142/84
[2018-02-14 07:52] VITALS: BP 146/71
[2018-02-14 21:30] VITALS: BP 148/60
[2018-02-15 08:00] VITALS: BP 153/75
[2018-02-15 20:51] VITALS: BP 140/65
[2018-02-16 08:00] VITALS: BP 142/82
[2018-02-16 20:00] VITALS: BP 140/82
[2018-02-17 09:03] VITALS: BP 148/78
[2018-02-17 20:19] VITALS: BP 136/68
[2018-02-18 08:10] VITALS: BP 141/65
[2018-02-18 20:14] VITALS: BP 130/80
[2018-02-19 08:05] VITALS: BP 136/82
[2018-02-19 20:00] VITALS: BP 134/84
[2018-02-20 07:30] VITALS: BP 134/80
[2018-02-20] MEDS ORDERED: AMITRIPTYLINE50 MG PO (10:32)
[2018-02-20] MEDS ORDERED: ATARAX,VISTARIL50 MG PO (10:32)
[2018-02-20] MEDS ORDERED: LACTULOSE20 GM/30 M PO (10:32)
[2018-02-20] MEDS ORDERED: BIOTENE MOIST44.3 ML PO (10:32)
[2018-02-20 19:50] VITALS: BP 124/61
[2018-02-21 07:53] VITALS: BP 134/82
[2018-02-25] MEDS ORDERED: DEPAKOTE SPRIN125 MG PO (12:49)
== END 2018-02-21 11:40 | DRG 885 ==
LOC: 3N 13:43
PROVIDERS: Psychiatry & Neurology Psychiatry
DX: F33.2 Major depressive disorder, recurrent severe without psychotic features (principal); E11.22 Type 2 diabetes mellitus with diabetic chronic kidney disease; E11.41 Type 2 diabetes mellitus with diabetic mononeuropathy; I50.32 Chronic diastolic (congestive) heart failure; I13.0 Hypertensive heart and chronic kidney disease with heart failure and stage 1 through stage 4 chronic kidney disease, or unspecified chronic kidney disease; N18.3 Chronic kidney disease, stage 3 (moderate); E78.5 Hyperlipidemia, unspecified; I25.10 Atherosclerotic heart disease of native coronary artery without angina pectoris; I25.2 Old myocardial infarction; M19.90 Unspecified osteoarthritis, unspecified site; M81.0 Age-related osteoporosis without current pathological fracture; G89.29 Other chronic pain; M54.9 Dorsalgia, unspecified; F60.89 Other specific personality disorders; D64.9 Anemia, unspecified; K43.9 Ventral hernia without obstruction or gangrene; E78.00 Pure hypercholesterolemia, unspecified; E53.8 Deficiency of other specified B group vitamins; E55.9 Vitamin D deficiency, unspecified; K62.3 Rectal prolapse; R94.6 Abnormal results of thyroid function studies; R74.0 Nonspecific elevation of levels of transaminase and lactic acid dehydrogenase [LDH]; K57.30 Diverticulosis of large intestine without perforation or abscess without bleeding; M54.41 Lumbago with sciatica, right side; E11.65 Type 2 diabetes mellitus with hyperglycemia; E87.8 Other disorders of electrolyte and fluid balance, not elsewhere classified; G25.81 Restless legs syndrome; Z88.8 Allergy status to other drugs, medicaments and biological substances; Z91.041 Radiographic dye allergy status; Z79.4 Long term (current) use of insulin; Z90.49 Acquired absence of other specified parts of digestive tract; Z95.1 Presence of aortocoronary bypass graft; Z86.73 Personal history of transient ischemic attack (TIA), and cerebral infarction without residual deficits; Z83.3 Family history of diabetes mellitus; Z87.19 Personal history of other diseases of the digestive system; Z79.899 Other long term (current) drug therapy; Z82.49 Family history of ischemic heart disease and other diseases of the circulatory system; Z80.9 Family history of malignant neoplasm, unspecified; Z79.82 Long term (current) use of aspirin; Z98.42 Cataract extraction status, left eye; Z98.41 Cataract extraction status, right eye; Z79.01 Long term (current) use of anticoagulants

== ENCOUNTER 2018-10-07 16:05 | Emergency (ER) | payer OTHER ==
[~2018-10-07] VITALS: Ht 152.4 cm; Wt 70.3 kg
--- NOTE | ~2018-10-07 | EKG ---
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
[~2018-10-07 16:05] MED LIST changes: +AMITRIPTYLINE50 MG PO; +ATARAX,VISTARIL50 MG PO; +BASAG SOL SQ; +BIOTENE MOIST44.3 ML PO; +DEPAKOTE SPRIN125 MG PO; +LACTULOSE10 GM/151 PO; +LACTULOSE20 GM/30 M PO; +MIRALAX119 GM PO
[2018-10-07 16:56] LABS: BASO # 0.1 10*3/uL (0.0-0.1); BASO % 0.7 % (0.0-1.0); EOS # 0.2 10*3/uL (0.0-0.4); EOS % 1.9 % (1.0-4.0); HEMATOCRIT 34.9 % (37.0-47.0); HEMOGLOBIN 11.3 g/dl (12.0-16.0); LYMPH # 2.6 10*3/uL (1.3-4.4); LYMPH % 21.5 % (27.0-41.0); MEAN CELL VOLUME 86.2 fl (81.0-99.0); MEAN CORPUSCULAR HGB 27.9 pg (27.0-31.0); MEAN CORPUSCULAR HGB CONC 32.4 g/dl (33.0-37.0); MEAN PLATELET VOLUME 9.8 fl (9.6-12.3); MONO # 1.3 10*3/uL (0.1-1.0); MONO % 10.6 % (3.0-9.0); NEUT # 7.6 10*3/uL (2.3-7.9); NEUT % 64.1 % (47.0-73.0); PLATELET COUNT AUTOMATED 356 10*3/uL (130-400); RED BLOOD COUNT 4.05 10*6/uL (4.10-5.10); RED CELL DISTRI WIDTH 13.9 % (0-14.5); WHITE BLOOD COUNT 11.9 10*3/uL (4.8-10.8)
[2018-10-07 17:05] LABS: ACT PARTIAL THROMBO TIME 19.2 SECONDS (20.8-31.5); INTERNATIONAL NORM RATIO 0.9 (2.0-3.5)
[2018-10-07 17:12] LABS: ALBUMIN 3.8 gm/dl (3.1-4.5); CREATININE 1.53 mg/dL (0.55-1.02); POTASSIUM 3.8 mmol/L (3.5-5.1); TOTAL PROTEIN 7.7 gm/dL (6.4-8.2)
[2018-10-07 17:14] LABS: TROPONIN I 0.059 ng/ml (<0.045)
[2018-10-07 18:50] LABS: BILIRUBIN NEGATIVE (NEGATIVE); BLOOD NEGATIVE (NEGATIVE); CLARITY SL CLOUDY (CLEAR); COLOR YELLOW (YELLOW); GLUCOSE NEGATIVE (NEGATIVE); KETONE NEGATIVE (NEGATIVE); LEUKO ESTERASE NEGATIVE (NEGATIVE); NITRITE NEGATIVE (NEGATIVE); SPECIFIC GRAVITY <= 1.005 (1.005-1.030); UROBILINOGEN 0.2 E.U./dl (0.2-1.0)
[2018-10-07 19:08] LABS: RBC 0-2 rbc/hpf (0-2)
== END 2018-10-07 19:34 | disposition home or self-care (01) ==
LOC: ED 16:05
PROVIDERS: Emergency Medicine
DX: G45.9 Transient cerebral ischemic attack, unspecified (principal); I25.2 Old myocardial infarction; I25.10 Atherosclerotic heart disease of native coronary artery without angina pectoris; G89.29 Other chronic pain; E11.22 Type 2 diabetes mellitus with diabetic chronic kidney disease; I13.0 Hypertensive heart and chronic kidney disease with heart failure and stage 1 through stage 4 chronic kidney disease, or unspecified chronic kidney disease; N18.3 Chronic kidney disease, stage 3 (moderate); I50.9 Heart failure, unspecified; M81.0 Age-related osteoporosis without current pathological fracture; Z91.041 Radiographic dye allergy status; Z88.8 Allergy status to other drugs, medicaments and biological substances; Z86.73 Personal history of transient ischemic attack (TIA), and cerebral infarction without residual deficits; Z79.82 Long term (current) use of aspirin; Z79.899 Other long term (current) drug therapy; Z79.4 Long term (current) use of insulin; Z90.49 Acquired absence of other specified parts of digestive tract; Z90.710 Acquired absence of both cervix and uterus

== ENCOUNTER 2018-11-18 01:36 | Inpatient (IN) | payer OTHER ==
[~2018-11-18] VITALS: Ht 152.4 cm; Wt 55.5 kg
--- NOTE | ~2018-11-18 | CON ---
[place], [place] REPORT OF CONSULTATION NAME: CHANCE KANG UNIT #: [id number] ROOM: 523 DOCTOR: KATHIA PATTERSON MD BIRTHDATE: [birth year] DOS: 11/18/2018 ADDENDUM I agree with the assessment and plan done by the nurse practitioner, Gabrielle Snow. I reviewed the labs and imaging and made necessary changes in the note. Kathia Patterson MD CM:CONSTR:REPORT OF CONSULTATION 1630 12/09/18 0806 interface
--- NOTE | ~2018-11-18 | CON ---
[place], [place] REPORT OF CONSULTATION NAME: CHANCE KANG UNIT #: [id number] ROOM: 523 DOCTOR: GLADYS BATEMAN MD BIRTHDATE: [birth year] DOS: 11/18/2018 PSYCHIATRIC CONSULTATION CHIEF COMPLAINT: "Oh, help me honey." HISTORY OF PRESENT ILLNESS: This is a white female known to me from her stay at the [facility]. The patient had just previously been screaming very loudly for assistance and reports that right now she does not feel well. She is feeling nauseated and did not sleep or eat well. She is very fearful, could not verbalize to me what she is fearful of and she also endorses some depressive symptoms and then tended to minimize. The patient is a poor historian with gaps in her memory noted. MENTAL STATUS: She is alert and oriented to person, place, not necessarily time. Mood seems to be depressed with anxious overtones. Her responses tend to be short and simple, at times inappropriate. There is no gross hypomania or courtney. There is no psychosis, although she is fearful and could not verbalize exactly what makes her fearful. Short term memory continues to have gaps. DIAGNOSIS: Major depression, recurrent; rule out intermittent explosive disorder. PLAN: I would start her on Remeron 15 mg at bedtime. I also think she would benefit from a possible U stay. I will be off this weekend, Berta Amaya, nurse practitioner, is covering. I would reach out to Berta Amaya and see if she continues to meet inpatient criteria and then transferred to [facility] when such time is met. GLADYS BTAEMAN MD CM:CONSTR:REPORT OF CONSULTATION 1023 11/19/18 0042 interface
--- NOTE | ~2018-11-18 | PR ---
[place], [place] PROGRESS NOTE NAME: CHANCE KANG [facility] #: [id number] UNIT #: [id number] ROOM: 523 DOCTOR: ZANDER SMITH MD,MARIA ISABEL BIRTHDATE: [birth year] DOS: 11/20/2018 PULMONARY PROGRESS NOTE SUBJECTIVE: The patient is noted awake and alert at this time. The patient has been noted to be awake. Change in mental status has improved this afternoon as the patient was seen. She was awake and alert this morning. Denies symptoms of coughing, chest pain or sputum expectoration. She is complaining of some pain in the lower extremities. Denies symptoms of hemoptysis. Denies any symptoms of diplopia. Denies symptoms of nausea and vomiting. REVIEW OF SYSTEMS: Otherwise noted negative. OBJECTIVE: VITAL SIGNS: Normal temperature, respiratory rate 18, heart rate 77, blood pressure 144/55. Pulse oxygen saturation on room air was 95% saturation. HEENT: Shows head was atraumatic, eyes nonicterus. NECK: Supple. CARDIOVASCULAR: S1 and S2 audible. LUNGS: The patient is without any crackles, rhonchi or wheezing at the present time. ABDOMEN: Soft, nontender. Bowel sound is present. CENTRAL NERVOUS SYSTEM: The patient is noted with improvement in mental status. LABORATORY AND DIAGNOSTIC DATA: CT scan of chest which was done without contrast yesterday ordered by the primary care attending of the patient, Dr. Choe, showed large subacute ischemic infarct involving the left occipital lobe portion of the left cerebellar hemisphere. CBC of this morning, WBC count normal, hemoglobin 11, platelet count normal. Urine culture noted E. coli isolation with heavy growth. The patient's BUN is 21, creatinine 1.79. Potassium was normal. Sodium was normal. Blood culture which was done on 11/18/2018 noted without any bacterial growth. IMPRESSION: 1. The patient has been noted with acute stroke with change in mental status. 2. Possibility of urinary tract infection versus colonization. There was no evidence of pneumonia. Ischemic stroke was noted. 3. Multiple other medical problems at this time as well. 4. Refusal by power of manager zone for the patient to transfer to acute care center, so the patient is currently treated in this hospital conservatively for the stroke and other medical management. PLAN OF THERAPY: No change in pulmonary standpoint at this time. Continue the patient on oxygen supplementation as needed to maintain pulse oxygen saturation 92% or greater. Conservative treatment of the stroke and other problems as well. There were no ongoing acute medical illness noted related to pulmonary disease, so pulmonary is signing off for the patient today. Continue other medical management for multiple ongoing medical problems per primary care attending. Please feel free to consult for the patient in case the patient develops any new respiratory problems. [place], [place] PROGRESS NOTE NAME: CHANCE KANG Young UNIT #: [id number] ROOM: 523 DOCTOR: MARIA ISABEL LANDAVERDE MD BIRTHDATE: [birth year] MARIA ISABEL FERMIN MD CM:PNTRANS [id number] MARIA ISABEL SMITH MD 11/21/18 0256 interface
--- NOTE | ~2018-11-18 | EKG ---
[place], [place] ELECTROCARDIOGRAM REPORT NAME: CHANCE KANG UNIT #: [id number] ROOM: 523 DOCTOR: ROBERT DRAFT REPORT BIRTHDATE: [birth year] [facility] Test Date: 2018-11-18 Test Time: 02:01:04 Pat Name: CHANCE KANG Department: Room: 523 Gender: F Loans Consultant: Kristyn Rand : 1940 Requested By: ROXANA LOUIE Order Number: [id number] Reading MD: Robbie Gallo MD Measurements Intervals Quinn Rate: 86 P: -15 VT: 152 QRS: -33 QRSD: 131 T: 153 QT: 379 QTc: 454 Interpretive Statements Sinus rhythm Left bundle branch block Compared to ECG 10/07/2018 17:01:07 Electronically Signed On 11-18-2018 16:01:01 PST by Robbie Gallo MD CM:EKGRPT:ELECTROCARDIOGRAM REPORT 0201 1601 ROXANA VALIENTE DRAFT REPORT ROXANA LOUIE DO
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
--- NOTE | ~2018-11-18 | CON ---
[place], [place] REPORT OF CONSULTATION NAME: CHANCE KANG UNIT #: [id number] ROOM: 523 DOCTOR: KATHIA PATTERSON MD BIRTHDATE: [birth year] DOS: 11/20/2018 ADDENDUM I agree with the assessment and plan made by the nurse practitioner, Gabrielle Snow. I reviewed the labs and imaging and made the necessary changes in the note. Kathia Patterson MD CM:CONSTR:REPORT OF CONSULTATION 1711 11/22/18 0250 interface
[2018-11-18 01:37] VITALS: BP 142/70
[2018-11-18] MEDS ORDERED: COREG3.125 MG PO (01:51)
[2018-11-18] MEDS ORDERED: [UNRECOGNIZED DRUG - OTHER] OPH (01:52)
[2018-11-18] MEDS ORDERED: IMODIUM A-D2 M2 PO (01:54)
[2018-11-18] MEDS ORDERED: LASIX20 MG PO (01:55)
[2018-11-18] MEDS ORDERED: XALATAN 0.005%2.5 ML INTRAOC (01:56)
[2018-11-18] MEDS ORDERED: NORVASC5 MG PO (01:59)
[2018-11-18] MEDS ORDERED: OYSTER SHELL C500 M4 PO (02:01)
[2018-11-18] MEDS ORDERED: PREPARATION H O28 GM R (02:03)
[2018-11-18] MEDS ORDERED: RISPERDAL0.25 MG PO (02:04)
[2018-11-18] MEDS ORDERED: PRILOSEC20 M1 PO (02:04)
[2018-11-18 02:05] LABS: HEMATOCRIT 39.8 % (37.0-47.0); HEMOGLOBIN 12.8 g/dl (12.0-16.0); MEAN CELL VOLUME 84.9 fl (81.0-99.0); MEAN CORPUSCULAR HGB 27.3 pg (27.0-31.0); MEAN CORPUSCULAR HGB CONC 32.2 g/dl (33.0-37.0); MEAN PLATELET VOLUME 9.7 fl (9.6-12.3); PLATELET COUNT AUTOMATED 448 10*3/uL (130-400); RED BLOOD COUNT 4.69 10*6/uL (4.10-5.10); RED CELL DISTRI WIDTH 14.1 % (0-14.5); WHITE BLOOD COUNT 12.4 10*3/uL (4.8-10.8)
[2018-11-18] MEDS ORDERED: BIOTENE ORALBAL42 G1 MM (02:06)
[2018-11-18] MEDS ORDERED: VISTARIL25 MG PO (02:07)
[2018-11-18 02:21] LABS: ALBUMIN 3.8 gm/dl (3.1-4.5); ALKALINE PHOSPHATASE 66 U/L (45-117); BUN 37 mg/dl (7-24); CHLORIDE 99 mmol/L (98-107); CREATININE 1.86 mg/dL (0.55-1.02); POTASSIUM 3.5 mmol/L (3.5-5.1); SGOT/AST 23 IU/L (3-35); SGPT/ALT 17 U/L (12-78); SODIUM 141 mmol/L (136-145); TOTAL PROTEIN 7.4 gm/dL (6.4-8.2)
[2018-11-18 02:23] LABS: ACETAMINOPHEN (TYLENOL) < 5.0 ug/ml (10-30); ETHYL ALCOHOL < 3.0 mg/dl (<3); TROPONIN I 0.033 ng/ml (<0.045)
[2018-11-18 02:27] LABS: BILIRUBIN NEGATIVE (NEGATIVE); BLOOD 1+ (NEGATIVE); CLARITY SL CLOUDY (CLEAR); COLOR YELLOW (YELLOW); GLUCOSE NEGATIVE (NEGATIVE); KETONE NEGATIVE (NEGATIVE); LEUKO ESTERASE TRACE (NEGATIVE); NITRITE NEGATIVE (NEGATIVE); PH 5.5 (5.0-9.0); SPECIFIC GRAVITY 1.015 (1.005-1.030); UROBILINOGEN 0.2 E.U./dl (0.2-1.0)
[2018-11-18 02:32] LABS: PLATELET SUFFICIENCY NORMAL (NORMAL); TOTAL CELLS COUNTED 100 #CELLS
[2018-11-18 02:36] LABS: URINE AMPHETAMINES < 1000 (1000ng/ml); URINE BARBITURATES < 200 (200ng/ml); URINE BENZODIAZEPINES < 200 (200ng/ml); URINE CANNABINOIDS (THC) < 50 (50ng/ml); URINE COCAINE < 300 (300ng/ml); URINE METHADONE < 300 (300ng/ml); URINE OPIATES > 300 (300ng/ml)
[2018-11-18 02:41] LABS: URINE PHENCYCLIDINE < 25 (25ng/ml)
--- NOTE | 2018-11-18 02:51 | NUR ---
PT LINENS CHANGED AND NEW BRIEF PLACED ON PT.
--- NOTE | 2018-11-18 02:53 | NUR ---
MRSA SWAB COLLECTED AND SENT TO LAB.
--- NOTE | 2018-11-18 02:56 | NUR ---
THIS RN CALLED FLOOR NURSE MARIA M AND WAS ADVISED BED IS NOT READY AND WILL RETURN CALL WHEN ROOM IS READY.
[2018-11-18 03:10] VITALS: BP 127/49
--- NOTE | 2018-11-18 03:10 | NUR ---
A 78, admitted to , under the services of LA Childers DO with a diagnosis of HCAP. Chief complaint is PT. FROM [place] C/O CHANGE IN MENTAL STATUS SINCE WEDNESDAY AFTER AND OUTTING WITH FAMILY, THEY STATED SHE HAS BEEN "GIDDY" AND DISRUPTIVE AND UNABLE TO AMBULATE WITH STEADY GAIT USUAL. DAKOTA DID A UA TOX SCREEN AND + FOR OPIATES.. Patient arrived via bed from ER. Monitor applied. Initial assessment completed. Vital signs taken and recorded. LA CHILDERS DO notified of admission to the unit. Orders received. See assessment for past medical history, medications and allergies. Patient and/or family oriented to unit. [facility]. visitation policy reviewed. Clothing/patient valuable form completed. MARIA M MADSEN
[2018-11-18 03:11] LABS: BACTERIA 4+
--- NOTE | 2018-11-18 03:24 | NUR ---
THIS RN CALLED AND SPOKE WITH JONH ANSARI AT THE [facility] AND UPDATED ON PT ADMISSION TO THE HOSPITAL.
--- NOTE | 2018-11-18 03:38 | NUR ---
NORCO GIVEN PER ORDER FOR PAIN IN LEFT LEG PER PT HURTS BAD. SEE MAR
--- NOTE | 2018-11-18 04:35 | NUR ---
NORCO EFFECTIVE FOR PAIN PER PT.
--- NOTE | 2018-11-18 06:46 | NUR ---
ZOFRAN GIVEN PER ORDER FOR NAUSEA. SEE MAR.
--- NOTE | 2018-11-18 07:17 | NUR ---
CALLED [facility] AND NOTIFIED THEM OF CONSULT.
--- NOTE | 2018-11-18 07:30 | NUR ---
ZOFRAN EFFECTIVE FOR NAUSEA PER PT.
--- NOTE | 2018-11-18 09:46 | NUR ---
PATIENT IS YELLING OUT AND IS CONFUSED. PATIENT YELLS "NURSE" AND "HELP" EVEN WHEN A NURSE IS IN THE ROOM. WHEN ASKED WHAT IS WRONG THE PATIENT STATES SHE IS "SICK". DR BATEMAN WAS IN TO SEE PATIENT FOR EVALUATION. WILL CONTINUE TO MONITOR.
--- NOTE | 2018-11-18 10:00 | NUR ---
PATIENT PULLED OUT IV. NEW IV STARTED IN RIGHT AC BY JASON Beckford RN WITH ONE ATTEMPT. PATIENT TOLERATED.
[2018-11-18 12:00] VITALS: BP 166/76
--- NOTE | 2018-11-18 13:02 | NUR ---
Patient comes from the [facility], she is long-term care and can return when medically stable for discharge.
--- NOTE | 2018-11-18 13:03 | NUR ---
Attempted PT evaluation this afternoon with pt sleeping and difficult to arouse. RN reports pt would benefit from the sleep and requesting PT not arouse her at this time. Plan to attempt at later date. Flakita Lobo, PT
--- NOTE | 2018-11-18 14:03 | NUR ---
PHYSICAL THERAPY PROGRESS NOTE: Pt seen for evaluation this pm while on 5th floor with moderate complexity determined. Pt has been c/o abdominal pain and nursing is aware, but she was agreeable to sit up in recliner chair. She required ModAx1 for transfers and bed mobiltiy and declined ambulation this date. Personal alarm intact at conclusion at evaluation. Recommend return to [place] with recommendation for skilled PT services as this pt, who is known to me, has had a decline in all function. Thank you for this referral. Flakita Lobo, PT
--- NOTE | 2018-11-18 15:08 | NUR ---
PT YELLING AND CRYING. MEDICATED WTIH ATIVAN IV PER PRN ORDER, SEE EMAR. SITTING IN RECLINER IN DOORWAY BY THE NURSES STATION.
[2018-11-18 16:00] VITALS: BP 123/56
--- NOTE | 2018-11-18 19:25 | NUR ---
DR FERMIN WAS CALLED ABOUT CONSULT
[2018-11-18 20:00] VITALS: BP 118/56
[2018-11-18 20:12] LABS: ABG BASE EXCESS 3.6 mmol/L (-2.0-2.0); ABG HCO3 27.8 mmol/l (22-26); ABG O2 SATURATION 93.3 % (95-97); ARTERIAL BLOOD GAS PCO2 42.1 mmHg (35-45); ARTERIAL BLOOD GAS PH 7.433 (7.35-7.45)
--- NOTE | 2018-11-18 22:14 | NUR ---
BS 67. GIVEN ORANGE JUICE WITH MEDICATION. WILL RECHECK. PATIENT MEDICATED WITH RESTORIL TO HELP SLEEP. PATIENT SCREAMING OUT. ALSO MEDICATED WITH TYLENOL FOR LEG PAIN. [facility]
[2018-11-19] VITALS: BP 112/49
[2018-11-19 06:34] LABS: BASO # 0.1 10*3/uL (0.0-0.1); BASO % 0.6 % (0.0-1.0); EOS # 0.3 10*3/uL (0.0-0.4); EOS % 3.8 % (1.0-4.0); LYMPH # 2.3 10*3/uL (1.3-4.4); MEAN CELL VOLUME 86.5 fl (81.0-99.0); MEAN CORPUSCULAR HGB 26.5 pg (27.0-31.0); MEAN CORPUSCULAR HGB CONC 30.6 g/dl (33.0-37.0); MEAN PLATELET VOLUME 10.1 fl (9.6-12.3); MONO # 1.3 10*3/uL (0.1-1.0); NEUT # 3.9 10*3/uL (2.3-7.9); NEUT % 49.7 % (47.0-73.0); RED BLOOD COUNT 3.93 10*6/uL (4.10-5.10); RED CELL DISTRI WIDTH 13.9 % (0-14.5); WHITE BLOOD COUNT 7.9 10*3/uL (4.8-10.8)
[2018-11-19 06:38] LABS: HEMOGLOBIN 10.4 g/dl (12.0-16.0); PLATELET COUNT AUTOMATED 307 10*3/uL (130-400)
[2018-11-19 06:45] LABS: ALBUMIN 2.9 gm/dl (3.1-4.5); POTASSIUM 3.3 mmol/L (3.5-5.1)
[2018-11-19 06:46] LABS: ACT PARTIAL THROMBO TIME 22.3 SECONDS (20.8-31.5)
[2018-11-19 06:57] LABS: CREATININE 2.03 mg/dL (0.55-1.02); FREE T4 1.16 ng/dl (0.76-1.46); THYROID STIM HORMONE (HS) 1.7 uIU/ml (0.358-4.75); TOTAL PROTEIN 6.5 gm/dL (6.4-8.2)
--- NOTE | 2018-11-19 07:47 | NUR ---
Contacted Dr. Escamilla per request of Dr. Tipton and relay message to transfer patient out where she can be evaluted by a neurologist for her continued altered mental status.
[2018-11-19 12:00] VITALS: BP 148/67
--- NOTE | 2018-11-19 14:00 | NUR ---
Spoke with Dr. Marin regarding dressing to be changed today by nursing. Also spoke about Dr. Merida being contacted for date of patients discharge.
--- NOTE | 2018-11-19 14:25 | NUR ---
DR. VICK WAS PAGED. AWAITING RESPONSE BACK.
--- NOTE | 2018-11-19 14:42 | NUR ---
PATIENT STATED SHE WAS FEELING LIKE WHEN HER SUGAR IS LOW. BLOOD SUGAR WAS 54.
--- NOTE | 2018-11-19 15:07 | NUR ---
Message left with Dr. Schaefer's service regarding consult for evaluation of possible SHAPER HAND infection.
--- NOTE | 2018-11-19 15:12 | NUR ---
Dr. Carrillo returned page. See new orders.
[2018-11-19 16:00] VITALS: BP 135/64
--- NOTE | 2018-11-19 17:07 | NUR ---
Tylenol given per patient c/o headache. Will monitor.
--- NOTE | 2018-11-19 17:35 | NUR ---
CALLED TO PLACE TELEPHONE ORDER. ORDERS IN PLACE, PATIENT NURSE INFORMED OF CHANGES AND INFORMED ON POSSIPLE TRANSFER WHEN ABLE TO GET AHOLD ON PATIENTS SON.
--- NOTE | 2018-11-19 19:50 | NUR ---
dr. schultz in room to discuss ct head results with family.
[2018-11-19 20:00] VITALS: BP 124/68
[2018-11-20] VITALS: BP 118/43
[2018-11-20 06:07] LABS: BASO # 0.1 10*3/uL (0.0-0.1); BASO % 1.2 % (0.0-1.0); EOS # 0.3 10*3/uL (0.0-0.4); EOS % 4.5 % (1.0-4.0); HEMATOCRIT 36.1 % (37.0-47.0); LYMPH # 2.1 10*3/uL (1.3-4.4); LYMPH % 34.2 % (27.0-41.0); MEAN CELL VOLUME 87.6 fl (81.0-99.0); MEAN CORPUSCULAR HGB 26.7 pg (27.0-31.0); MEAN CORPUSCULAR HGB CONC 30.5 g/dl (33.0-37.0); MEAN PLATELET VOLUME 9.8 fl (9.6-12.3); MONO % 16.5 % (3.0-9.0); NEUT # 2.6 10*3/uL (2.3-7.9); NEUT % 42.8 % (47.0-73.0); PLATELET COUNT AUTOMATED 297 10*3/uL (130-400); RED BLOOD COUNT 4.12 10*6/uL (4.10-5.10); RED CELL DISTRI WIDTH 14.2 % (0-14.5); WHITE BLOOD COUNT 6.1 10*3/uL (4.8-10.8)
[2018-11-20 06:35] LABS: ALBUMIN 3.1 gm/dl (3.1-4.5); CREATININE 1.79 mg/dL (0.55-1.02); PHOSPHOROUS 2.2 mg/dL (2.5-4.9); POTASSIUM 3.8 mmol/L (3.5-5.1); TOTAL PROTEIN 6.5 gm/dL (6.4-8.2)
[2018-11-20 08:00] VITALS: BP 127/50
--- NOTE | 2018-11-20 08:00 | NUR ---
PT RESTING IN BED, NO DISTRESS NOTED. BED ALARM MAINTAINED. CALL LIGHT WITHIN REACH.
[2018-11-20 12:00] VITALS: BP 137/78
--- NOTE | 2018-11-20 13:21 | NUR ---
DR WEBB IN TO SEE PT AT THIS TIME.
--- NOTE | 2018-11-20 13:40 | NUR ---
DAWIT FROM [facility] NOTIFIED OF NEED FOR PT TO BE RE-EVALUATED FOR POSSIBLE TRNASFER FOR TOMORROW. STATES PRODUCT DEVELOPMENT CONSULTANT CRISTINA BALDERRAMA NOT BEEN IN YET, BUT SHE WILL NOTIFY HER.
--- NOTE | 2018-11-20 14:36 | NUR ---
MEDICATED WITH NORCO FOR PT COMPLAINTS OF LEG PAIN. WILL MONITOR FOR EFFECTIVENESS. CALL LIGHT WITHIN REACH.
[2018-11-20 16:00] VITALS: BP 144/55
--- NOTE | 2018-11-20 16:08 | NUR ---
PT CONTINUES TO CRY OUT IN LEG PAIN, MEDICATED WITH TYLENOL. WILL MONITOR FOR EFFECTIVENESS.
--- NOTE | 2018-11-20 17:43 | NUR ---
PT RESTING MORE COMFORTABLY, EARLIER TYLENOL EFFECTIVE FOR LEG PAIN.
--- NOTE | 2018-11-20 19:57 | NUR ---
24 HR chart check completed.
[2018-11-20 20:00] VITALS: BP 161/63
--- NOTE | 2018-11-20 20:45 | NUR ---
RESTORIL GIVEN FOR C/O SLEEPLESSNESS. WILL MONITOR
--- NOTE | 2018-11-20 22:00 | NUR ---
MEDICATED WITH PRN NORCO FOR C/O LEG PAIN. WILL MONITOR. BED ALARM ON, BED IN LOW POSITION, CALL LIGHT IN REACH
[2018-11-21] VITALS: BP 134/44
--- NOTE | 2018-11-21 01:55 | NUR ---
MEDICATED WITH PRN TYLENOL FOR C/O LEG PAIN
[2018-11-21 06:45] LABS: CREATININE 1.22 mg/dL (0.55-1.02); POTASSIUM 3.8 mmol/L (3.5-5.1)
--- NOTE | 2018-11-21 07:56 | NUR ---
Patient comes from the [facility], however facility is requesting patient go to [facility] prior to returning.
[2018-11-21 08:00] VITALS: BP 153/54
--- NOTE | 2018-11-21 08:10 | NUR ---
PT HAD LIQUID BM, FULL BATH/BED CHANGE PROVIDED AT THIS TIME.
--- NOTE | 2018-11-21 08:12 | NUR ---
SPOKE WITH IVANA FROM [facility], INFORMED THAT PT WAS NOT SEEN BY [facility]ALTH YESTERDAY FOR EVALUATION FOR U PLACEMENT TODAY.
--- NOTE | 2018-11-21 08:30 | NUR ---
Patient updated clincals faxed to the [facility] for review. [place] is requesting patient goes to [facility] prior to returning.
--- NOTE | 2018-11-21 09:14 | NUR ---
PT YELLING OUT, COMPLAINING OF LEG PAIN. MEDICATED WITH NORCO. WILL MONITOR FOR EFFECTIVENESS.
--- NOTE | 2018-11-21 10:30 | NUR ---
PT RESTING MORE COMFORTABLY, EARLIER NORCO EFFECTIVE.
--- NOTE | 2018-11-21 10:58 | NUR ---
SPEECH PATHOLOGY Nursing screen completed. Reports indicate acute CVA. This dept. will be available for consult as needed. NIDA MERCADO MSCCC-CLAIMS ATTORNEY
--- NOTE | 2018-11-21 11:33 | NUR ---
PHYSICAL THERAPY Patient presented to therapy in supine with head of bed flat and report of no pain. Patient has no complaints. Patient agrees to therapy session. Patient transfers supine to sitting at EOB with MOD A X 1. Patient leans to her L SIDE in sitting. Patient scooted to EOB with MIN X 1. Patient transferred STS with MIN A X 1. Patient side-stepped to bedside chair with MOD A X 1 with verbal cues for hand placement and safe turning. patient demonstrated confusion when trying to follow directions to turn and sit in bed side chair. Patient required MOD A X 1 to transfer to bedside chair. patient sat in bed side chair and performed seated bilateral LE ther ex x 15 reps each for strengthening the LEs in order to improve patient's functional mobility. Patient was left in sitting position with call light within reach, chair alarm activated, and and tray table with lunch in front of patient. CHAIR ALARM ATTACHED TO PATIENT AND TESTED AND WITNESSED BY yarn inspector. Patient was 1:1 with this SOCIALLY RESPONSIBLE INVESTMENT ADVISER for 20 minutes total. Patient to be returned to SNF upon discharge. LUIS CAMPUZANO SOCIALLY RESPONSIBLE INVESTMENT ADVISER
[2018-11-21 12:00] VITALS: BP 148/71
--- NOTE | 2018-11-21 12:37 | NUR ---
PT IS ASSISTED CARE AT [facility] AND WILL RETURN WHEN MEDICALLLY STABLE ALTHOUGH THEY WANT PT TO GO TO [facility] BEFORE COMING BACK.
[2018-11-21] MEDS ORDERED: ATORVASTATIN CA80 M1 PO (13:51)
[2018-11-21] MEDS ORDERED: KEFLEX 500 MG E2 CAP PO (13:51)
[2018-11-21] MEDS ORDERED: Humalog SQ (13:51)
[2018-11-21] MEDS ORDERED: Ipratropium Brom3 ML NEB (13:51)
[2018-11-21] MEDS ORDERED: CLOPIDOGREL75 MG PO (13:51)
--- NOTE | 2018-11-21 14:00 | NUR ---
PT ASSISTED BACK TO BED, PT INCONTINENT FOR LIQUID STOOL. DIANA CARE PROVIDED.
--- NOTE | 2018-11-21 14:26 | NUR ---
DR WEBB REQUESTED [facility] TO BE NOTIFIED THAT PT HAS BEEN DISCHARGED TO [facility]. SPOKE WITH DELMER REGARDING THIS.
--- NOTE | 2018-11-21 16:22 | NUR ---
PT LEFT FLOOR VIA WHEELCHAIR IN THE COMPANY [employer], [facility] AND IVANA Barrett RN. REPORT GIVEN.
== END 2018-11-21 17:10 | disposition other institution (70) | DRG 64 ==
LOC: ED 01:36 → EDHOLD 02:33 → 5E 02:33
PROVIDERS: Family Medicine; Internal Medicine; Internal Medicine Critical Care Medicine; Student in an Organized Health Care Education/Training Program; ADMIT Internal Medicine
DX: I63.9 Cerebral infarction, unspecified (principal); G93.41 Metabolic encephalopathy; N39.0 Urinary tract infection, site not specified; I13.0 Hypertensive heart and chronic kidney disease with heart failure and stage 1 through stage 4 chronic kidney disease, or unspecified chronic kidney disease; I25.810 Atherosclerosis of coronary artery bypass graft(s) without angina pectoris; F33.9 Major depressive disorder, recurrent, unspecified; J98.11 Atelectasis; D47.3 Essential (hemorrhagic) thrombocythemia; R53.1 Weakness; E83.52 Hypercalcemia; N18.3 Chronic kidney disease, stage 3 (moderate); I50.9 Heart failure, unspecified; Z79.4 Long term (current) use of insulin; E78.00 Pure hypercholesterolemia, unspecified; M15.9 Polyosteoarthritis, unspecified; M54.41 Lumbago with sciatica, right side; G89.29 Other chronic pain; K57.30 Diverticulosis of large intestine without perforation or abscess without bleeding; E53.8 Deficiency of other specified B group vitamins; Z66 Do not resuscitate; Z51.5 Encounter for palliative care; B96.20 Unspecified Escherichia coli [E. coli] as the cause of diseases classified elsewhere; E11.22 Type 2 diabetes mellitus with diabetic chronic kidney disease; M81.0 Age-related osteoporosis without current pathological fracture; H40.9 Unspecified glaucoma; G25.81 Restless legs syndrome; K21.9 Gastro-esophageal reflux disease without esophagitis; K59.03 Drug induced constipation; T50.905A Adverse effect of unspecified drugs, medicaments and biological substances, initial encounter; Y92.89 Other specified places as the place of occurrence of the external cause; Z86.73 Personal history of transient ischemic attack (TIA), and cerebral infarction without residual deficits; I25.2 Old myocardial infarction; Z90.49 Acquired absence of other specified parts of digestive tract; Z95.1 Presence of aortocoronary bypass graft; Z83.3 Family history of diabetes mellitus; Z80.9 Family history of malignant neoplasm, unspecified; Z82.49 Family history of ischemic heart disease and other diseases of the circulatory system; Z88.8 Allergy status to other drugs, medicaments and biological substances; Z91.041 Radiographic dye allergy status; Z79.82 Long term (current) use of aspirin; Z79.899 Other long term (current) drug therapy

== ENCOUNTER 2018-11-21 14:44 | Inpatient (IN) | payer OTHER ==
[~2018-11-21] VITALS: Ht 152.4 cm; Wt 55.3 kg
--- NOTE | ~2018-11-21 | PR ---
[place], [place] PROGRESS NOTE [facility]: [facility] [id number] UNIT #: [id number] ROOM: 314 DOCTOR: GLADYS BATEMAN MD BIRTHDATE: [birth year] DOS: 11/23/2018 INTERVAL NOTE CHIEF COMPLAINT: "My leg is hurting, my leg is stuck." SUMMARY OF THE VISIT: The patient was interviewed in the dining area where she was sitting in a Kristan chair. She complained that her leg was hurting. I did obtain assistance from one of the nurses and her leg did not seem to be stuck in anyway. Nurses report that overall she has had good days, but does have these episodes of excessive emotionality that occur without warning and without any congruent to the situation. The patient does seem to be having these occur less often since the initiation of the Nuedexta, outwardly she is tolerating all the current medications well. MENTAL STATUS: She is alert and oriented with some time gaps. Mood does seem to be fairly euthymic. Affect appropriate. There is no courtney, hypomania or psychosis. Short-term memory has mild gaps, otherwise she is intact. PLAN: I will go ahead and maximize the Nuedexta to its therapeutic dose of 20-10 q.12 hours. Monitor for risk, benefit, engage in individual and brooke milieu activity, returning then to the least restrictive environment when psychiatrically stable. GLADYS BATEMAN MD CM:PNTRANS [id number] GLADYS BATEMAN MD 11/23/18 1310 interface
--- NOTE | ~2018-11-21 | WRIGHTHP ---
[place], [place] PATIENT HISTORY AND PHYSICAL EXAM NAME: CHANCE KANG [facility] #: [id number] UNIT #: [id number] ROOM: 314 DOCTOR: GLADYS BATEMAN MD BIRTHDATE: [birth year] DOS: 11/22/2018 CHIEF COMPLAINT: "Will I be going back to my room at the [facility]." HISTORY OF PRESENT ILLNESS: This is a 78-year-old white female known to me from a previous admission here to the [facility] as well as her stay at the [facility]. The patient had presented to the medical floor with an alteration in mental status. The patient had a large subacute ischemic infarct in the left occipital lobe and the left cerebellar hemisphere. While on the medical floor, the patient was found to be both significantly depressed with tearful episodes, poor sleep and appetite, anergia, anhedonia, hopeless, helpless feelings. She also had increased yelling out behaviors that were nonsensical in nature. Despite having someone present, at times she would yell out and when asked what she wanted was not able to put into words any rational explanation. She is now admitted to the [facility] to further evaluate her behavior to engage in individual and brooke milieu activity, to return then to the least restrictive environment when psychiatrically stable. PAST MEDICAL HISTORY: Remarkable for vitamin B12 deficiency, coronary artery disease, congestive heart failure, chronic back pain, chronic kidney disease stage 3, diabetes, GERD, glaucoma, hiatal hernia, hypertension, major depression, recurrent, myocardial infarction, osteoarthritis, osteoporosis, rectal prolapse, restless leg syndrome, sigmoid diverticulosis, TIA, vitamin D deficiency. SOCIAL HISTORY: The patient does not drink alcohol, smoke cigarettes or use illicit drugs. ALLERGIES: LISTED TO GABAPENTIN, IVP DYE AND RED DYE. STRENGTHS: Good verbal skills, supportive living environment. WEAKNESSES: Chronic long-term psychiatric issues and poor coping skills. MENTAL STATUS: She is alert and oriented with time gaps. Mood does seem to be somewhat depressed with anxious overtones. At times, there is some excessive emotionality that seemed incongruent to the events occurring around her. There is no overt hypomania or courtney. There are no gross psychotic symptoms. Short term memory has some mild gaps. DIAGNOSES: Major depression, recurrent, severe, pseudobulbar affect. PLAN: I have already started her on Remeron 15 mg at bedtime to impact positively on sleep and appetite and combat her depressive symptomatology. While on the medical floor, it was well documented that she had continued outbursts of excessive emotionality. I believe is consistent with the diagnosis of pseudobulbar affect related to her recent CVA. I will go ahead and treat with Nuedexta 20-10 one tablet daily. Monitor and support, engage in individual and brooke milieu activity, returning then to the least restrictive environment when psychiatrically stable. [place], [place] PATIENT HISTORY AND PHYSICAL EXAM NAME: CHANCE KANG UNIT #: [id number] ROOM: [facility] DOCTOR: GLADYS BATEMAN MD BIRTHDATE: [birth year] GLADYS BATEMAN MD CM:HISPHYS:PATIENT HISTORY AND PHYSICAL EXAMINATION [id number] GLADYS BATEMAN MD 11/22/18 1024 interface
--- NOTE | ~2018-11-21 | PR ---
[place], [place] PROGRESS NOTE [id number] UNIT #: [id number] ROOM: 314 DOCTOR: GLADYS BATEMAN MD BIRTHDATE: [birth year] DOS: 11/25/2018 CHIEF COMPLAINT: "Hey, I thought I was going back to [facility]." SUMMARY OF THE VISIT: The patient was interviewed as she was sitting in the dining room. She reports that she did not sleep well and is not eating well, but does feel that she is ready to go back to her group home. She continues to complain of leg pain and still has episodic periods of yelling out, but these seem to have dissipated in frequency and intensity with the initiation and stabilization of Nuedexta. MENTAL STATUS: She is alert and oriented with time gaps. Mood does seem to be trending towards euthymia. Affect is more appropriate. There is no courtney, hypomania or psychosis. Short term memory continues to be problematic. PLAN: I will go ahead and increase her Remeron to 22.5 mg at bedtime to see if this will be more impactful on treating her depression, improve sleep and appetite. I will add Rozerem 8 mg at bedtime straight, also have a non-addicting sleep agent to attempt to impact positively on her sleep patterns, engage in individual and brooke milieu activity, returning to the least restrictive environment. GLADYS BATEMAN MD CM:PNTRANS [phone] GLADYS BATEMAN MD 11/25/18 0955 interface
--- NOTE | ~2018-11-21 | PR ---
[place], [place] PROGRESS NOTE [id number] #: [id number] ROOM: 314 DOCTOR: GLADYS BATEMAN MD BIRTHDATE: [birth year] DOS: 11/24/2018 INTERVAL NOTE CHIEF COMPLAINT: "My leg hurts, my calf hurts, it's an 8 on a 1-10 scale." SUMMARY OF THE VISIT: The patient was interviewed as she was sitting in the quiet room. She was engaging easily in conversation. She once again was fixated on leg pain and specified that it was pain in her calf and that on a scale of 1-10 the pain was mainly an 8. She voiced no other complaints. Later in the day as I was dictating notes I did hear her calling out repeatedly for assistance. She is very difficult to redirect and even when staff intervened she continues to yell out. There is definitely an anxiety component to her symptoms as well. MENTAL STATUS: She is alert and oriented with some time gaps. Mood does seem to be trending towards euthymia, but there are still anxious overtones. There is no courtney or hypomania, likewise, there are no gross psychotic symptoms noted. Memory does have some gaps. PLAN: I will go ahead and add Vistaril 25 mg 3 times daily as a non-addicting antianxiety agent. I will have nursing pass on her complaint of calf pain to the hospitalist to see if any further evaluation is warranted. I deferred other expertise. GLADYS BATEMAN MD CM:PNTRANS [id number] GLADYS BATEMAN MD 11/24/18 1222 interface
--- NOTE | ~2018-11-21 | DS ---
[place], [place] DISCHARGE SUMMARY NAME: CHANCE KANG [facility] #: [id number] UNIT #: [id number] ROOM: 314 DOCTOR: GLADYS BATEMAN MD BIRTHDATE: [birth year] DOS: 11/28/2018 CHIEF COMPLAINT: "Will I be going back to my room at the [facility]." HISTORY OF PRESENT ILLNESS: This is a 78-year-old white female known to me from her previous admission here to the [facility] as well as her stay at the [facility]. She initially presented to the medical floor after an alteration in her mental status. The patient had a large subacute ischemic infarct in the left occipital lobe and the left cerebellar hemisphere. While on the medical floor, she was found to be both significantly depressed with tearful episodes, poor sleep and appetite, anergia, anhedonia, hopeless, helpless feelings and crying spells. She also was yelling out very bizarrely and nonsensically in nature and could not be consoled. She is admitted now to the [facility] to rule out organic factors and attempt to stabilize on medication. SUMMARY OF HOSPITAL COURSE: The patient was initially started on Remeron 15 mg at bedtime as an antidepressant that would rapidly improve sleep and appetite. She tolerated this well and did start sleeping and eating fairly quickly. Her emotional lability was somewhat incongruent to the situation and often times would be occurring spontaneously for no apparent reason. For this reason it was felt that she was suffering from pseudobulbar affect following the CVA. She was started on Nuedexta 20-10 one daily and this was rapidly increased to 1 tablet every 12 hours with a substantial reduction in her yelling out. In fact, at one point her yelling out, had significantly decreased in frequency and intensity. The patient had been on Risperdal, but it was felt that the patient was not psychotic, so this was discontinued once the Nuedexta was started. There was an anxiety component to her symptoms, so hydroxyzine was utilized as a nonaddicting, nontolerant bearing antianxiety agent 25 mg t.i.d. was effective. Remeron was eventually increased to 22.5 mg at bedtime with good results and Rozerem was added to further aid sleep. With this combination, the patient did improve dramatically. Her mood stabilized. Her affect was much more appropriate. There was no yelling out noted and she redirected well. She tolerated the medicines well and was able to return to the [facility]. MENTAL STATUS AT DISCHARGE: The patient is alert and oriented to person, place, not necessarily time. Mood does seem to be strongly trending towards euthymia. Affect is much more appropriate. There is no courtney, hypomania or gross psychosis. Short term memory does have gaps. FINAL DIAGNOSES: Major depression, recurrent, pseudobulbar affect and Alzheimer's dementia. DISPOSITION: The patient is returning to the [facility]. I will be the treating psychiatrist of record. All of her prescriptions have been printed and will be sent with her. At the time of discharge, she was medically stable and there was no acute psychiatric issues present. [place], [place] DISCHARGE SUMMARY NAME: CHANCE KANG UNIT #: [id number] ROOM: [facility] DOCTOR: GLADYS BATEMAN MD BIRTHDATE: [birth year] GLADYS BATEMAN MD CM:DISCHARG [id number] GLADYS BATEMAN MD 11/28/18 1116 interface
[~2018-11-21 14:44] MED LIST changes: +ATORVASTATIN CA80 M1 PO; +BIOTENE ORALBAL42 G1 MM; +CLOPIDOGREL75 MG PO; +COREG3.125 MG PO; +Humalog SQ; +IMODIUM A-D2 M2 PO; +Ipratropium Brom3 ML NEB; +KEFLEX 500 MG E2 CAP PO; +NORVASC5 MG PO; +OYSTER SHELL C500 M4 PO; +PREPARATION H O28 GM R; +PRILOSEC20 M1 PO; +RISPERDAL0.25 MG PO; +VISTARIL25 MG PO; +XALATAN 0.005%2.5 ML INTRAOC; +[UNRECOGNIZED DRUG - OTHER] OPH
--- NOTE | 2018-11-21 16:20 | NUR ---
NOTIFIED [facility], OF ADMISSION.
--- NOTE | 2018-11-21 16:20 | NUR ---
NURSING GENERATOR ASSEMBLER MADE AWARE OF PATIENT BEING ADMITTED TO THE FLOOR.
[2018-11-21 16:37] VITALS: BP 148/82
[2018-11-21 17:05] VITALS: BP 148/82
--- NOTE | 2018-11-21 17:16 | NUR ---
CHANCE KANG a 78 year old F admitted via wheel chair from the OTHER as a voluntary admission by Guardian Esther Pizarro. Arrived on unit at 1627. ALLERGIES: IVP dye, Red Dye, Gabapentin. Vital signs are: 98.0-88-17 148/82. The client unable to sign the following forms; Verbal aggreement by Guardian Esther Pizarro with stated understanding: Authorization For The Release of Medical Information, Clothing List, Consent to Voluntary Admission and Hospitalization, Consent and Release Forms/Receipt of Rights, Acknowledgement of Advance Directive Information, Behavioral Health Consent Form, and Informed Consent of Medications. Admitted under the services of Dr. BHAVANA MILLARD,[facility]. A search was conducted and hazardous articles were removed. Client was oriented to the unit. IVANA BAIRD
--- NOTE | 2018-11-21 17:20 | NUR ---
DR. NEWTON NOTIFIED OF NEW ADMISSION, MEDICATIONS AND DIAGNOSIS UP TO DATE FOR REVIEW. PATIENT WILL BE UNDER THE CARE OF DR. NEWTON.
--- NOTE | 2018-11-21 18:35 | NUR ---
PATIENT REFUSED SKIN ASSESSMENT AT THIS TIME. YELLING OUT AND BECOMING COMBATIVE. WILL ATTEMPT AT A LATER TIME WHEN PATIENT CALMS DOWN.
[2018-11-21 20:00] VITALS: BP 141/77
--- NOTE | 2018-11-21 22:00 | NUR ---
LABILE MOOD. 1:1 PROVIDED FOR EMOTIONAL SUPPORT & VENTILATION OF FEELINGS. ALERT TO PERSON & PLACE ONLY. MOOD IS LABILE WITH YELLING OUT & PLEASANTLY CONFUSED DURING VERBAL INTERVENTION. UNRECEPTIVE TO REDIRECTION. COMPLIANT TAKING HS MEDICATIONS WHOLE.
--- NOTE | 2018-11-22 00:19 | NUR ---
C/O BILATERAL LEG PAIN. RATED 8/10. MEDICATED WITH PRN NORCO @ 0015.
--- NOTE | 2018-11-22 00:23 | NUR ---
24 HR chart check completed.
--- NOTE | 2018-11-22 05:49 | NUR ---
[facility] & PT SLEPT ONLY ABOUT 2 & A HALF HOURS PAST 314. PT HAS SLEPT IN A GHULAM CHAIR NEAR THE NURSES STATION FOR SAFETY.
--- NOTE | 2018-11-22 06:12 | NUR ---
PT REQUESTED & MEDICATED WITH TYLENOL 650 MG PO @ 0608 FOR C/O BI-LATERAL LEG DISCOMFORT. RATED PAIN 8/10.
[2018-11-22 06:41] LABS: BASO # 0.1 10*3/uL (0.0-0.1); EOS # 0.3 10*3/uL (0.0-0.4); EOS % 3.1 % (1.0-4.0); HEMATOCRIT 38.2 % (37.0-47.0); HEMOGLOBIN 12.2 g/dl (12.0-16.0); LYMPH # 2.7 10*3/uL (1.3-4.4); LYMPH % 28.6 % (27.0-41.0); MEAN CELL VOLUME 84.7 fl (81.0-99.0); MEAN CORPUSCULAR HGB 27.1 pg (27.0-31.0); MEAN CORPUSCULAR HGB CONC 31.9 g/dl (33.0-37.0); MEAN PLATELET VOLUME 9.9 fl (9.6-12.3); MONO % 10.5 % (3.0-9.0); NEUT # 5.2 10*3/uL (2.3-7.9); NEUT % 55.7 % (47.0-73.0); PLATELET COUNT AUTOMATED 384 10*3/uL (130-400); RED BLOOD COUNT 4.51 10*6/uL (4.10-5.10); WHITE BLOOD COUNT 9.3 10*3/uL (4.8-10.8)
--- NOTE | 2018-11-22 06:44 | NUR ---
AM BEDSIDE GLUCOSE 186
[2018-11-22 07:00] LABS: ALBUMIN 3.7 gm/dl (3.1-4.5); CREATININE 1.15 mg/dL (0.55-1.02); POTASSIUM 3.8 mmol/L (3.5-5.1)
[2018-11-22 07:10] LABS: THYROID STIM HORMONE (HS) 2.18 uIU/ml (0.358-4.75); TOTAL PROTEIN 7.5 gm/dL (6.4-8.2)
[2018-11-22 07:34] LABS: VITAMIN D, 25-HYDROXY 64.9 ng/mL (30-100)
[2018-11-22 08:03] VITALS: BP 127/69
--- NOTE | 2018-11-22 08:30 | NUR ---
Treatment Plan meeting with Dr. Fuentes, RN, AT, SW and Hitting Coach. Plan for discharge next week. Pt. is current resident at [facility].
--- NOTE | 2018-11-22 10:58 | NUR ---
Spoke with Sofie at [facility]. Pt. is [facility] care at facility with [facility] and does require precert prior to return to facility.
--- NOTE | 2018-11-22 12:07 | NUR ---
ASSESSMENT AND AM GROUP/FOCUS ON TASK PT WAS PRESENT IN THE ACTIVITY BUT WAS SOUND ASLEEP RECLINED IN A GHULAM CHAIR. PT WOULD NOT AWAKEN FOR ASSESSMENT OR GROUP. WILL ATTEMPT BOTH THIS AFTERNOON.
--- NOTE | 2018-11-22 12:51 | NUR ---
PATIENT YELLING OUT, COMPLAINING OF BILATERAL LEG PAIN, STATING "I HURTS REAL BAD". PRN NORCO 5/325MG PO GIVEN AT THIS TIME.
--- NOTE | 2018-11-22 13:51 | NUR ---
PRN NORCO EFFECTIVE, NO FURTHER COMPLAINING OF PAIN AND PATIENT STATED THE MEDICINE WORKED.
--- NOTE | 2018-11-22 14:00 | NUR ---
PT APPROVED FOR [facility] DEC 03. NEXT REVIEW DATED Dec.
--- NOTE | 2018-11-22 15:47 | NUR ---
PM GROUP/MUSIC AND SOCIALIZATION PT WAS PRESENT FOR AFTERNOON GROUP BUT SLEPT RECLINED IN A GHULAM CHAIR THE ENTIRE TIME. PT AWOKE JUST BEFORE GROUP WAS OVER WANTING TO GET OUT OF THE CHAIR. PT WAS "CRYING" AND TRYING TO GET OUT. PT WAS DISTRACTED WITH AN OFFER OF SOMETHING TO DRINK. WILL ATTEMPT ASSESSMENT AND PERSONAL DAILY GOAL TOMORROW
--- NOTE | 2018-11-22 16:44 | NUR ---
Number on letter of guardianship for Esther [phone] was called and a VM left requesting a call back to this telegraphic typewriter installer for collateral as PSA was completed with the limitations as pt would not cooperate with assessment.
--- NOTE | 2018-11-22 18:23 | NUR ---
Physical Therapy Progress Note: Pt was seen for evaluation while on U with moderate complexity determined based on co-mobidities and current function [address]. Pt was cooperative during evaluation with MOD-MAXAX1 required for transfers and pt declining ambulation. Refer to evaluation for complete details with recommendation for SNF upon discharge. Thank you for this referral. Flakita Lobo, PT
[2018-11-22 19:57] VITALS: BP 146/78
--- NOTE | 2018-11-22 22:37 | NUR ---
24 HR chart check completed.
--- NOTE | 2018-11-23 02:28 | NUR ---
PT CONTINUES TO DISPLAY A LABILE MOOD. YELLS OUT RANDOMLY & THEN SMILES & IS PLEASANTLY CONFUSED. COMPLIANS OF BILATERAL LEG PAIN. NORCO WAS EFFECTIVE FOR RELIEF OF PAIN & PT WAS NOTED TO BE RESTING QUIETLY. COMPLIANT TAKING HS MEDICATIONS WHOLE. ALERT TO PERSON & PLACE. ABLE TO VOICE HER NEEDS. WILL CONTINUE TO MONITOR & PROVIDE WITH PHYSICAL ASSISTANCE & EMOTIONAL SUPPORT.
--- NOTE | 2018-11-23 05:55 | NUR ---
PT HAS SLEPT PAST 0000 WITH A FEW BRIEF AWAKENINGS FOR A TOTAL OF ABOUT 4 HOURS.
--- NOTE | 2018-11-23 07:25 | NUR ---
PHYSICAL THERAPY Patient was seen this am for therapy visit and was resting in activity room Kristan chair upon therapist arrival. Patient presented with a little confusion this morning and required v/c to keep focus on task in completing all ex. Patient also presented with increased B hamstring tightness and tolerated prolonged stretch 10 second hold x 10 reps each. Patient performed seated B LE therex, all planes, x 15 reps each with v/c to reach full ROM. Patient remained in Kristan chair following treatment with body alarm and under U staff Supervision. Will continue per POC as tolerated, total treatment time 14 minutes. Manish Maher, SOCIAL SERVICES ANALYST
[2018-11-23 07:58] VITALS: BP 132/65
--- NOTE | 2018-11-23 08:15 | NUR ---
Treatment Plan meeting with Dr. Fuentes, RN, AT, SW and [facility] Psychiatrist. Plan for discharge Wednesday. Pt. current resident of [facility]
--- NOTE | 2018-11-23 09:06 | NUR ---
PATIENT IN DINING ROOM RECLINING IN GHULAM CHAIR, YELLING OUT "MY LEGS, IT HURTS" REPEATING TWICE, STATING "I DON'T KNOW IT HURTS" PRN NORCO 5/325MG PO GIVEN AT THIS TIME; ALSO PROVIDED WITH JUICE PER REQUEST.
--- NOTE | 2018-11-23 09:30 | NUR ---
PERSONAL DAILY GOAL COMMUNICATION STYLE PT MAKES NEEDS KNOWN THROUGH "CRYING" OUT OR YELLING. ENCOURAGE PT TO USE POSITIVE COMMUNICATION STYLES
--- NOTE | 2018-11-23 10:06 | NUR ---
PRN NORCO 5/325MG EFFECTIVE. PATIENT STATED "NO PAIN" WHEN ASKED.
--- NOTE | 2018-11-23 10:44 | NUR ---
DR. NEWTON ON UNIT TO ASSESS PATIENT.
--- NOTE | 2018-11-23 10:45 | NUR ---
Collaborated with [place] as she returned this com writer's call and obtained collateral information for PSA. Guardian indicated she will be leaving town on the which is the projected discharge date and she can come in at 930 or 10am that day if needed to sign discharge paperwork but cannot come later but can be available via phone. Also, the guardian stated the pts children may not provide transportation. As well as there was some concern from half-way that her children may have been slipping her drugs in the past at the half-way. This com writer notified unit staff/nurses and there will be supervised visits with her kids and the nurse said she will make a note about the discharge being early on Wednesday so guardiphyllis can come in otherwise she may have spotty service via phone as she is traveling out of state that day. Collaborated with exercise planner regarding guardian's transportation requests and plan for discharge.
--- NOTE | 2018-11-23 12:03 | NUR ---
AM GROUP/CURRENT EVENTS/FOCUS GROUP PT DID NOT ATTEND MORNING GROUP THERAPY. PT WAS IN QUIET ROOM RELAXING DUE TO LACK OF SLEEP LAST NIGHT. PT WILL BE ENCOURAGED TO ATTEND AFTERNOON GROUP.
--- NOTE | 2018-11-23 14:40 | NUR ---
Patient not available for Occupational Therapy as he is in group therapy session. Sumi Painter OTR/L
--- NOTE | 2018-11-23 15:49 | NUR ---
PM GROUP/CREATIVE OUTLETS PT WAS PRESENT FOR AFTERNOON GROUP THERAPY BUT CHOSE NOT TO PARTICIPATE. PT NAPPED AND WOULD REPEATEDLY YELL OUT. WHEN QUESTIONED, PT STATED, "I DON'T KNOW WHY I DO THAT?"
--- NOTE | 2018-11-23 17:47 | NUR ---
AFTER TAKING PATIENT TO BATHROOM FOR TOILETING NEEDS. ASKED PATIENT ABOUT PAIN. PATIENT STATED THE MEDICATION WORKED. PRN NORCO EFFECTIVE.
--- NOTE | 2018-11-23 17:57 | NUR ---
P: YELLING OUT AT CHUY I: PROVIDING PATIENT WITH PAIN MEDICATION WHEN IN PAIN; PROVIDING ONE ON ONE AND REDIRECTION AFTER RECEIVING MEDICATION. R: EFFECTIVE P: CONTINUE TO MONITOR FOR RANDOM YELLING OUT EPISODES; ADDRESS PAIN MANAGEMENT AND CONTINUE TO PROVIDE ONE ON ONE AND REDIRECTION. PATIENT IS ALERT AND ORIENT TO PERSON, PLACE, SITUATION WITH CONFUSION; ABLE TO RECALL MONTH/YEAR. DENIES ANY HALLUCINATIONS, DELUSIONS, HI/SI OR PAIN. MOOD ID IRRITABLE AT TIMES. MEDICAITON COMPLAINT WITH EDUCAITON PROVIDED. Q 15 MINUTE SAFETY CHECKS MAINTAINED. 2-3 PERSON ASSIST WITH ACTIVITIES OF DAILY LIVING. INCONTINENT OF BOWEL AND BLADDER, SET UP FOR MEALS, INTAKES VARY WITH ADEQUATE FLUIDS. CONTINUE TO MONITOR FOR YELLING OUT EPOSIDES, PROVIDE ONE ON ONE AND REDIRETION NEEDED.
[2018-11-23 20:00] VITALS: BP 132/61
--- NOTE | 2018-11-23 23:18 | NUR ---
24 HR chart check completed.
--- NOTE | 2018-11-24 02:28 | NUR ---
PT AWAKE AT THIS TIME. YELLING OUT. C/O BI-LATERAL LEG PAIN. RATED PAIN 06/10. MEDICATED WITH NORCO @ 3488.
--- NOTE | 2018-11-24 06:00 | NUR ---
PT HAS SLEPT APPROXIMATELY 4 HOURS INTERMITTENTLY THIS SHIFT. PRN NORCO WAS EFFECTIVE FOR RELIEF OF PAIN
--- NOTE | 2018-11-24 07:07 | NUR ---
AM BEDSIDE GLUCOSE 234
[2018-11-24 07:58] VITALS: BP 149/68
--- NOTE | 2018-11-24 08:30 | NUR ---
Treatment Plan meeting with Dr. Fuentes, RN, AT, and Company Doctor. Plan for discharge Wednesday. Pt. LTC at [facility].
--- NOTE | 2018-11-24 09:10 | NUR ---
PERSONAL DAILY GOAL SOCIAL BOUNDRIES PT YELLS OUT RANDOMLY IN A GROUP SETTING AND IS LOUD AND DEMANDING. PT WILL BENEFIT FROM UNDERSTANDING SOCIAL BOUNDRIES AND GAIN EMPATHY FOR OTHERS IN THE ROOM
--- NOTE | 2018-11-24 10:45 | NUR ---
Occupational Therapy evaluation completed on 3 with full eval to follow. Precautions include 3N, fall risk;bed/personal alarm,impaired cognition, lethargy. Patient is high complexity level 25303 via chart review, testing and evaluation. Recommend OT per POC and return to [facility]; LTC upon d/c. Thank you for this referral. Gi Painter OTR/L
--- NOTE | 2018-11-24 12:06 | NUR ---
PRN NORCO ONE TAB PO GIVEN AT THIS TIME PER PT REQUEST FOR C/O BILATERAL CALF PAIN RATED LEVEL 8/10. PT STATES PAIN IS CONSTANT IN NATURE, UNRELIEVED BY ALL INTERVENTIONS WITH THE EXCEPTION OF PRN NORCO PER PT. WILL MONITOR FOR MEDICATION EFFECTIVENESS.
--- NOTE | 2018-11-24 12:09 | NUR ---
AM GROUP/INTERPERSONAL INTERACTIONS PT DID NOT ATTEND MORNING GROUP THERAPY. PT WAS RESTING IN QUIET ROOM.
--- NOTE | 2018-11-24 15:45 | NUR ---
PM GROUP/STRESS REDUCTION PT WAS PRESENT FOR GROUP AND STATED, "CAN WE PLAY BINGO?" PT THEN FELL ASLEEP RECLINED IN A GHULAM CHAIR. PT DID NOT YELL OUT INAPPROPRIATELY DURING GROUP.
--- NOTE | 2018-11-24 18:34 | NUR ---
P-PT YELLS OUT FOR "MOM" OCCASIONALLY T/O THE SHIFT. PT ALERT AND ORIENTED TO PERSON AND PLACE WITH ST/LT MEMORY DEFICITS AND CONFUSION. MEDICATION COMPLIANT WITHOUT DIFFICULTY. NAPS INTERMITTENTLY T/O THE SHIFT. I-REDIRECTED DURING PERIODS OF YELLING OUT AND OUTBURSTS. FREQUENTLY REORIENTED WITH REALITY PRESENTED. R-PT REDIRECTS EASILY WITH DIVERSIONAL ACTIVITIES. PLEASANT AND COOPERATIVE WITH STAFF. P-ENCOURAGE GROUPS.
[2018-11-24 20:00] VITALS: BP 134/75
--- NOTE | 2018-11-24 21:50 | NUR ---
Medicated with [place] po prn for c/o bilateralcalf pain rating 8/10. Will monitor effectiveness.
--- NOTE | 2018-11-25 00:17 | NUR ---
24 HR chart check completed.
--- NOTE | 2018-11-25 01:41 | NUR ---
PRN TYLENOL GIVEN FOR PT COMPLAINTS OF CALF PAIN RATING IT 10/10. WILL MONITOR FOR EFFECTIVENESS
--- NOTE | 2018-11-25 05:54 | NUR ---
Patient slept approx. 2 hours throughout shift.
--- NOTE | 2018-11-25 07:50 | NUR ---
PHYSICAL THERAPY Patient seen this am for therapy visit and was supine in bed upon therapist arrival. Therapist approached patient with 2 U staff members present for observation only and transfered supine to sit EOB with MAX A x 2. Patient tolerated EOB sit x several minutes, CGA/MIN, demonstrating L side / Retrograde posture and unable to maintain nuetral seated posture without therapist assist. Patient performed sit to stand transfer, Mod/Max A x 2, completing SPT to Kristan chair, while demonstrating increased difficulty with B LE step sequence. Patient remained in Kristan chair within activity room with body alarm and under [facility] staff Supervision. Will continue per POC as tolerated, total treatment time 12 minutes. Manish Maher, SCAFFOLD BUILDER
[2018-11-25 08:22] VITALS: BP 154/70
--- NOTE | 2018-11-25 08:30 | NUR ---
Treatment Plan meeting with Dr. Fuentes, RN, AT, and Fuel Cell Repairer. Plan for discharge Wednesday. Pt. is LTC at [place] and will return at discharge.
--- NOTE | 2018-11-25 09:32 | NUR ---
P-PT ALERT AND ORIENTED TO PERSON AND PLACE, OTHERWISE CONFUSED WITH ST/LT MEMORY DEFICITS. PERIODS OF DISRUPTIVE BEHAVIORS NOTED, YELLS OUT NONSENSICALLY AT TIMES. INTAKE REMAINS MINIMAL FOR BREAKFAST, WILL CONTINUE TO ENCOURAGE PO NUTRITION AND FLUIDS. C/O PAIN TO BILATERAL LEGS WHICH IS UNRELIEVED WITH REPOSITIONING, 06/10. I-REORIENTED FREQUENTLY AND PRN, DIVERSIONAL ACTIVITIES, REDIRECTTION AND PRN NORCO FOR C/O PAIN. R-PT IS PLEASNTLY CONFUSED AND EASILY REDIRECTABLE MOST OF THE TIME. RETAINS ORIENTATION FOR ONLY SHORT PERIODS OF TIME. MEDICATION COMPLIANT WITHOUT DIFFICULTY. P-WILL CONTINUE TO MONITOR FOR EFFECTIVENESS OF NORCO, ENCOURAGE GROUPS, Q15 MIN CHECKS, 1:1 NEEDED.
--- NOTE | 2018-11-25 10:15 | NUR ---
PRN NORCO EFFECTIVE, PT HAS HAD NO FURTHER C/O PAIN OR DISCOMFORT.
--- NOTE | 2018-11-25 11:00 | NUR ---
Clinical Updates faxed to [facility].
--- NOTE | 2018-11-25 12:15 | NUR ---
AM GROUP/EXERCISES/GAME/ART PT UNABLE TO ATTEND AT THIS TIME DUE TO WANTING TO LAY IN BED. PT WILL CONTINUE TO BE ENCOURAGED TO ATTEND AND PARTICIPATE TO BEST OF PT ABILITY.
--- NOTE | 2018-11-25 12:46 | NUR ---
Spoke with Rosaline Sullivan at [facility]. Pt. will admit to Hospice at [facility] upon discharge and return to facility. Provided with Clinical Updates.
--- NOTE | 2018-11-25 16:37 | NUR ---
Orders received for Hospice. Referral to [facility] Faxed Attn Rosaline.
--- NOTE | 2018-11-25 18:31 | NUR ---
IMPROVED INTAKE THIS SHIFT. PT ALSO TOOK A SHOWER WITH ASSISTANCE FROM STAFF. PT HAD LRG BM.
[2018-11-25 19:28] VITALS: BP 139/61
--- NOTE | 2018-11-26 00:16 | NUR ---
24 HR chart check completed.
--- NOTE | 2018-11-26 05:40 | NUR ---
Patient slept approx. 9 hours throughout shift.
[2018-11-26 08:16] VITALS: BP 159/68
--- NOTE | 2018-11-26 11:15 | NUR ---
ON UNIT TO ASSESS PT, NNO RECEIVED.
--- NOTE | 2018-11-26 11:55 | NUR ---
PT HAD AN EMESIS X1 OF MUCUS AT THIS TIME. STATES SHE IS FEELING BETTER AFTER. RESPS EASY AND EVEN ON ROOM AIR.
--- NOTE | 2018-11-26 12:13 | NUR ---
AM GROUP/EXERCISE AND BRAIN GAMES PT WAS PRESENT FOR MORNING GROUP THERAPY BUT WAS SOUND ASLEEP RECLINED IN A GHULAM CHAIR AND NEVER AWOKE.
--- NOTE | 2018-11-26 15:53 | NUR ---
PM GROUP/LEISURE ACTIVITIES PT ATTENDED AFTERNOON GROUP BUT CHOSE NOT TO PARTICIPATE. PT WOULD YELL OUT INTERMITTEDLY FOR NO REASON, DISRUPTING THE GROUP. WHEN ASKED WHAT WAS WRONG WOULD STATE, "NOTHING"
--- NOTE | 2018-11-26 18:14 | NUR ---
P-PT INTERMITTENTLY YELLS OUT NONSESICALLY. ALERT AND ORIENTED TO PERSON AND PLACE WITH ST/LT MEMORY DEFICITS AND PERIODS OF CONFUSION. WHEN ASKED WHY SHE IS YELLING OUT, PT STATES "I DON'T KNOW." I-FREQUENTLY REORIENTED T/O THE DAY AND PRN. REDIRECTION PRN. ENCOURAGED ATTENDENCE AND PARTICIPATION IN GROUP THERAPY. ASSESSED PT FOR SI/HI, HALLUCINATIONS, AND DELUSIONS. R-PT PLEASANT AND COOPERATIVE WITH STAFF. MEDIACTION COMPLIANT WITHOUT DIFFICULTY. EASILY REDIRECTED. P-CONTINUE TO ENCOURAGE GROUPS AND REDIRECT NEEDED.
--- NOTE | 2018-11-26 18:32 | NUR ---
Shift chart check completed.
[2018-11-26 20:12] VITALS: BP 143/69
--- NOTE | 2018-11-26 22:03 | NUR ---
P-ALERT AND ORIENT TO PERSON AND PLACE WITH CONFUSION AND ST/LT MEMORY DEFICITS. OCCASIONALLY YELLING OUT. I-REDIRECTED AND REORIENTED WHEN NEEDED. R-PATIENT PLEASANT AND COOPERATIVE WITH STAFF. EASILY REDIRECTED. COMPLIANT WITH MEDICATIONS WITHOUT DIFFICULTY. P-CONTINUE TO REDIRECT AND REORIENT WHEN NEEDED. CONTINUE TO ENCOURAGE MEDICATION COMPLIANCE.
--- NOTE | 2018-11-27 00:13 | NUR ---
24 HR chart check completed.
--- NOTE | 2018-11-27 05:54 | NUR ---
Patient slept approx.6 hours throughout shift.
[2018-11-27 07:28] VITALS: BP 140/67
--- NOTE | 2018-11-27 13:48 | NUR ---
PATIENT COMPLAINING AND YELLING OUT IN PAIN TO BILATERAL LOWER LEGS. STATING "IT HURTS" PRN NORCO 5/325MG PO AT THIS TIME.
--- NOTE | 2018-11-27 14:46 | NUR ---
PATIENT IN QUIET ROOM WITH STAFF, NO LONGER YELLING OUT DUE TO PAIN. PRN NORCO EFFECTIVE.
--- NOTE | 2018-11-27 15:01 | NUR ---
PATIENT IS ALERT AND ORIENTED TO PERSON, PLACE WITH CONFUSION. TIME RECALL PATIENT STATED 1919. MOOD IS ANXIOUS AT TIMES. DENIES ANY HALLUCINATIONS, DELUSIONS, HI/SI. PAIN COMPLAINED OF BILATERAL LOWER LEG PAIN, RECIEVED NORCO FOR PAIN MANAGEMENT. UP IN GHULAM CHAIR FOR COMFORT. 2 PERSON ASSIST WITH ACTIVITIES OF DAILY LIVING, INCONTINENT OF BOWEL AND BLADDER. SET UP MEALS, ASSIST NEEDED. INTAKES VARY, WITH ENCOURAGEMENT. Q 15 MINUTE SAFETY CHECKS MAINTAINED. MEDICATION COMPLAINT. CONTINUE TO MONITOR FOR ANY OUTBURST; PROVIDE ONE ON ONE AND REDIRECTION.
--- NOTE | 2018-11-27 15:49 | NUR ---
Shift chart check completed.
--- NOTE | 2018-11-27 16:28 | NUR ---
PM GROUP/EXERCISES/ART/DAILY POSITIVITY PT DID NOT ATTEND OR PARITICIPATE DUE TO YELLING OUT AND WOULD BE A DISTRACTION IN GROUP. PT WILL BE ENCOURAGED TO ATTEND WHEN MORE APPROPRIATE.
[2018-11-27 20:00] VITALS: BP 143/69
--- NOTE | 2018-11-27 23:15 | NUR ---
P-YELLING OUT AND CONFUSION. PATIENT WITH SHORT TERM AND RETIREMENT MEMORY DEFICITS. PATIENT YELLING OUT AND MAKING WHINING NOISES INTERMITTENTLY THROUGHOUT SHIFT. PATIENT WITH NO HALLUCINATIONS OR DELUSIONS. PATIENT WITH NO SUICIDAL OR HOMICIDAL IDEATIONS. I-REDIRECTION WITH 1:1 INTERVENTIONS AND PRESENT REALITY ORIENTATION. EDUCATE AND ENCOURAGE MEDICATION COMPLAINCE. R-REDIRECTION WITH 1:1 INTERVENTIONS AND PRESENTING REALITY EFFECTIVE FOR SHORT PERIODS OF TIME DUE TO COGNITION. PATIENT WITH COMPLAINT OF BILATERAL LOWER EXTREMITY PAIN OF 7 OUT OF 10. PATIENT REQUESTED PAIN MEDICATION AT THIS TIME. PATIENT RECEIVED NORCO FOR PAIN WITH EFFECTIVE RESULTS. PATIENT CONTINUES ON KEFLEX WITH NO ADVERSE REACTION P-CONTINUE WITH MEDICATION COMPLIANCE, CONTINUE TO PRESENT REALITY, ENCOURAGE GROUP THERAPY WHILE AWAKE
--- NOTE | 2018-11-28 00:15 | NUR ---
24 HR chart check completed.
--- NOTE | 2018-11-28 05:45 | NUR ---
PATIENT SLEPT 4 HOURS OF INTERRUPTED SLEEP THROUGHOUT SHIFT. Q 15 MINUTE CHECKS MAINTAINED.
[2018-11-28 07:58] VITALS: BP 142/68
--- NOTE | 2018-11-28 08:55 | NUR ---
PHYSICAL THERAPY Patient was sound asleep in activity room w/c and unable to arouse for therapy this morning. Will continue per POC as able. Manish Maher, WAGE AND SALARY ADMINISTRATOR
[2018-11-28] MEDS ORDERED: LACTULOSE20 GM/30 M PO (09:41)
[2018-11-28] MEDS ORDERED: NEUDEXT PO (09:41)
[2018-11-28] MEDS ORDERED: MIRTAZAPINE45 MG PO (09:41)
[2018-11-28] MEDS ORDERED: ROZEREM8 MG PO (09:41)
[2018-11-28] MEDS ORDERED: HYDROXYZINE PAM25 M1 PO (09:41)
--- NOTE | 2018-11-28 11:53 | NUR ---
AM GROUP/EXERCISE/GAMES PT ATTENDED FIRST 10 MINUTES BUT KEPT YELLING OUT ABOUT LEG PAIN. THIS STAFF GAVE PT WAYS TO COPE UNTIL MEDICINE BEGAN WORKING, PT CONTINUED TO YELL OUT AND BECAME A DISRUPTION IN GROUP. PT WAS REMOVED FROM ACTIVITES UNTIL PT IS NO LONGER A DISRUPTION. PT WILL BE ENCOURAGED TO ATTEND AND PARTICIPATE WHEN APPROPRIATE.
[2018-11-28] MEDS ORDERED: NORCO 5-325 TA1 EACH PO (12:32)
--- NOTE | 2018-11-28 16:00 | NUR ---
PM GROUP/LEISURE ACTIVITY'S PT ATTENDED BUT DID NOT PARTICIPATE. PT SLEPT IN GHULAM CHAIR THROUGHOUT GROUP AND DID NOT WAKE. PT WILL PLAN TO BE DISHARGED FROM UNIT THIS EVENING.
--- NOTE | 2018-11-28 16:15 | NUR ---
NURSE TO NURSE REPORT GIVEN TO [facility].
--- NOTE | 2018-11-28 17:45 | NUR ---
AMBULANCE SERVICE PRESENT, PATIENT READY FOR DISCHARGE. PATIENT ASSISTED TO [facility]. PATIENT OFF UNIT WITH AMBULANCE SERVICE, BELONGING AND DISCHARGE INSTRUCTIONS.
--- NOTE | 2018-11-29 11:39 | NUR ---
PHYSICAL THERAPY CO-SIGN I approve of the Phyical Therapy notes written above. JUSTIN SALINAS PT
== END 2018-11-28 17:45 | DRG 885 ==
LOC: 3N 14:44
PROVIDERS: ADMIT Psychiatry & Neurology Psychiatry
DX: F33.2 Major depressive disorder, recurrent severe without psychotic features (principal); G93.41 Metabolic encephalopathy; J18.9 Pneumonia, unspecified organism; N30.01 Acute cystitis with hematuria; I25.810 Atherosclerosis of coronary artery bypass graft(s) without angina pectoris; I13.0 Hypertensive heart and chronic kidney disease with heart failure and stage 1 through stage 4 chronic kidney disease, or unspecified chronic kidney disease; D64.9 Anemia, unspecified; E87.8 Other disorders of electrolyte and fluid balance, not elsewhere classified; E11.22 Type 2 diabetes mellitus with diabetic chronic kidney disease; N18.3 Chronic kidney disease, stage 3 (moderate); F60.89 Other specific personality disorders; K59.03 Drug induced constipation; G30.9 Alzheimer's disease, unspecified; F02.80 Dementia in other diseases classified elsewhere, unspecified severity, without behavioral disturbance, psychotic disturbance, mood disturbance, and anxiety; K21.9 Gastro-esophageal reflux disease without esophagitis; M15.9 Polyosteoarthritis, unspecified; E11.39 Type 2 diabetes mellitus with other diabetic ophthalmic complication; H40.9 Unspecified glaucoma; K57.30 Diverticulosis of large intestine without perforation or abscess without bleeding; H42 Glaucoma in diseases classified elsewhere; M54.41 Lumbago with sciatica, right side; G89.29 Other chronic pain; M81.0 Age-related osteoporosis without current pathological fracture; G25.81 Restless legs syndrome; F48.2 Pseudobulbar affect; E53.8 Deficiency of other specified B group vitamins; E83.51 Hypocalcemia; I50.9 Heart failure, unspecified; Z79.4 Long term (current) use of insulin; Z86.73 Personal history of transient ischemic attack (TIA), and cerebral infarction without residual deficits; I25.2 Old myocardial infarction; Z88.8 Allergy status to other drugs, medicaments and biological substances; Z91.041 Radiographic dye allergy status; Z90.49 Acquired absence of other specified parts of digestive tract; Z95.1 Presence of aortocoronary bypass graft; Z83.3 Family history of diabetes mellitus; Z82.49 Family history of ischemic heart disease and other diseases of the circulatory system; Z80.9 Family history of malignant neoplasm, unspecified; Z79.82 Long term (current) use of aspirin; Z79.899 Other long term (current) drug therapy; Z79.02 Long term (current) use of antithrombotics/antiplatelets